=== PATIENT | female | born 1950 | race Caucasian/White ===

== ENCOUNTER → 2018-04-05 | Outpatient (CLI) | payer MEDICARE ==
[2018-04-05 13:50] LABS: Anisocytosis Slight; Basophils % (A) 1 %; Eosinophils # (A) 0.1 k/uL (0-0.7); Eosinophils % (A) 1 %; HCT 43.2 % (34.0-46.0); HGB 14.2 gm/dL (11.4-16.0); Hypochromasia Slight; Lymphocytes % (A) 12 %; MCH 32.6 pg (25.0-35.0); MCHC 32.9 g/dL (31.0-37.0); MCV 99.1 fL (80.0-100.0); Macrocytosis Slight; Mean Platelet Volume 6.9; Monocytes # (A) 0.7 k/uL (0-1.0); Monocytes % (A) 8 %; Neutrophils # (A) 6.6 k/uL (1.3-7.7); Neutrophils % (A) 77 %; Platelet Count 151 k/uL (150-450); RBC 4.36 m/uL (3.80-5.40); RDW 16.9 % (11.5-15.5); WBC 8.6 k/uL (3.8-10.6)
[2018-04-05 13:53] LABS: ALT 41 U/L (9-52); AST 69 U/L (14-36); Alkaline Phosphatase 110 U/L (38-126); Anion Gap 13 mmol/L; Blood Urea Nitrogen 12 mg/dL (7-17); Calcium 8.7 mg/dL (8.4-10.2); Carbon Dioxide 23 mmol/L (22-30); Chloride 100 mmol/L (98-107); Glucose 114 mg/dL (74-99); Potassium 4.5 mmol/L (3.5-5.1); Sodium 136 mmol/L (137-145); Total Bilirubin 1.9 mg/dL (0.2-1.3); Total Protein 7.6 g/dL (6.3-8.2)
== END | disposition home or self-care (01) ==
LOC: LABWHC1 12:16
PROVIDERS: ATTEND Physician Assistant
DX: R10.9 Unspecified abdominal pain (principal)
CPT/HCPCS: 36415; 80053; 85025

== ENCOUNTER → 2018-04-08 | Outpatient (CLI) | payer MEDICARE ==
--- NOTE | 2018-04-08 12:37 | US ---
EXAMINATION TYPE: US abdomen complete DATE OF EXAM: 04/08/2018 COMPARISON: CT, US CLINICAL HISTORY: R10.9 ABD PAIN; LLQ pain x 5 days with nausea and vomiting, diarrhea; gallbladder r emoved; hepatic cysts; diabetic; Ht5'7, WT 230lbs. EXAM MEASUREMENTS: Liver Length: 18.4 cm Gallbladder Wall: surgically removed CBD: 0.8 cm Spleen: 14.3 x 14.4 x 4.7 cm Right Kidney: 9.2 x 5.0 x 3.8 cm Left Kidney: 11.8 x 6.3 x 5.3 cm Pancreas: hyperechoic Liver: multiple right lobe hepatic cysts in clustered appearance = 4.9 x 3.6 x 3.7cm Gallbladder: surgically absent Evidence for sonographic Isaac's sign: no CBD: wnl post lap cholecystectomy Spleen: prominent size as is >13cm. Right Kidney: smaller size than left Left Kidney: No hydronephrosis or masses seen Upper IVC: wnl Abd Aorta: wnl Overlying bowel gas is noted midline abdomen. The liver is homogenous. Multiple hepatic cysts noted. Previous cholecystectomy changes. The intrahep atic portion of the IVC and proximal abdominal aorta are within normal limits. There is no evidence of cholelithiasis. The visualized portions of the pancreas are homogenous. Kidneys are symmetric an d free of hydronephrosis. No renal lesions are seen. IMPRESSION: 1. Multiple hepatic cysts are simple in appearance. 2. Splenomegaly.
--- NOTE | 2018-04-08 13:09 | US ---
EXAMINATION TYPE: US pelvic complete DATE OF EXAM: 04/08/2018 COMPARISON: CT 02/21/2016 CLINICAL HISTORY: R10.9 ABD PAIN. LLQ pain TECHNIQUE: . Transabdominal sonographic images of the pelvis were acquired. Patient attempted to dri nk more water to fill bladder more. Patient refused transvaginal imaging. Date of LMP: About age 47 EXAM MEASUREMENTS: Uterus: 7.4 x 2.5 x 4.4 cm Endometrial Stripe: 0.4 cm Right Ovary: Not visualized due to overlying bowel gas Left Ovary: 2.8 x 1.6 x 2.4 cm 1. Uterus: Anteverted wnl as visualized 2. Endometrium: wnl as visualized 3. Right Ovary: Not visualized due to overlying bowel gas 4. Left Ovary: wnl as visualized 5. Bilateral Adnexa: wnl 6. Posterior cul-de-sac: wnl IMPRESSION: 1. No distinct abnormality appreciated.
== END | disposition home or self-care (01) ==
LOC: RADUSWWP 10:49
PROVIDERS: ATTEND Family Medicine
DX: K76.89 Other specified diseases of liver (principal); R16.1 Splenomegaly, not elsewhere classified; R10.9 Unspecified abdominal pain
CPT/HCPCS: 76700; 76856

== ENCOUNTER 2018-10-22 10:30 | Inpatient (IN) | payer MEDICARE, OTHER ==
--- NOTE | 2018-10-22 11:23 | ED ---
General Adult HPI - General Chief complaint: GI Bleed Stated complaint: ABDOMINAL PAIN, RECTAL BLEEDING Time Seen by Provider: 10/22/18 10:50 Source: patient, RN notes reviewed, old records reviewed Mode of arrival: ambulatory Limitations: no limitations - History of Present Illness Initial comments: 68 yo female presenting for abdominal pain and rectal bleeding. Patient has been present for the past 2 days. Intermittent, crampy in nature. Patient is pain-free at the time my evaluation. She's had 2 episodes of bright red rectal bleeding with blood clots. She is not on anticoagulation. She has remote history of colon resection. She is uncertain when her last colonoscopy was. Denies fever but has had subjective chills. She's had nausea with no vomiting. Last normal bowel movement was 3 days prior. - Related Data Home Medications Medication Instructions Recorded Confirmed No Known Home Medications 10/22/18 10/22/18 Allergies Allergy/AdvReac Type Severity Reaction Status Date / Time No Known Allergies Allergy Verified 10/22/18 10:59 Review of Systems ROS Statement: Those systems with pertinent positive or pertinent negative responses have been documented in the HPI. ROS Other: All systems not noted in ROS Statement are negative. Past Medical History Past Medical History: GERD/Reflux, GI Bleed, Hearing Disorder / Deafness, Seizure Disorder, Syncope Additional Past Medical History / Comment(s): hx. diverticulitis, legally deaf left ear, recent admission for GI bleeding, peptic ulcer, hx. migraines, elevated liver enzymes-hasn't drank for approx. 1 month, had seizures as teen- nothing since then, feet swelling History of Any Multi-Drug Resistant Organisms: None Reported Past Surgical History: Appendectomy, Bowel Resection, Cholecystectomy, Orthopedic Surgery, Tonsillectomy Additional Past Surgical History / Comment(s): recent EGD, plate/screws in left elbow, bowel polyps Past Anesthesia/Blood Transfusion Reactions: No Reported Reaction Past Psychological History: No Psychological Hx Reported Smoking Status: Current every day smoker Past Alcohol Use History: Daily Past Drug Use History: None Reported - Past Family History Mother Family Medical History: Cancer, Liver Disease Additional Family Medical History / Comment(s): cancer of uterus Father Family Medical History: CVA/TIA, Hypertension, Myocardial Infarction ([place]) Additional Family Medical History / Comment(s): father from stroke Sister(s) Family Medical History: Cancer Additional Family Medical History / Comment(s): Breast Cancer General Exam Limitations: no limitations General appearance: alert, in no apparent distress Head exam: Present: atraumatic, normocephalic Eye exam: Present: normal appearance, PERRL ENT exam: Present: normal exam Neck exam: Present: normal inspection. Absent: tenderness, meningismus Respiratory exam: Present: normal lung sounds bilaterally. Absent: respiratory distress, wheezes Cardiovascular Exam: Present: regular rate, normal rhythm GI/Abdominal exam: Present: soft, tenderness (Minimal tenderness). Absent: distended, guarding, rebound Rectal exam: Present: normal inspection, normal rectal tone. Absent: black stool, bloody stool Extremities exam: Present: normal inspection, normal capillary refill. Absent: calf tenderness Neurological exam: Present: alert, oriented X3, CN II-XII intact. Absent: motor sensory deficit Psychiatric exam: Present: normal affect, normal mood Skin exam: Present: warm, dry, intact. Absent: cyanosis, diaphoretic Course Vital Signs 10/22/18 10/22/18 10/22/18 10:38 11:00 12:00 Temperature 97.5 F L Pulse Rate 88 78 74 Respiratory 20 16 16 Rate Blood Pressure 153/85 105/65 96/61 O2 Sat by Pulse 99 97 97 Oximetry 10/22/18 13:00 Temperature Pulse Rate Respiratory 16 Rate Blood Pressure 135/83 O2 Sat by Pulse Oximetry Medical Decision Making - Medical Decision Making 68 -year-old female presenting for evaluation of crampy abdominal pain and rectal bleeding. Patient has past history of diverticulosis with bowel resection. This was approximately 15 years ago. Patient's has no melena or significant bleeding on rectal exam. Workup reveals normal white blood cell count, stable hemoglobin 14.1, patient does have elevated total bili, AST ALT alkaline phosphatase are mildly elevated. She does report remote history of cholecystectomy and patient believes she may have past history of hepatitis C and has had elevated liver enzymes in the past. CT is performed which shows diverticulosis with concern for colitis and diverticulitis. There is also hepatocellular disease of the liver consistent with laboratory findings. Patient started on antibiotics as well as Protonix in the emergency partner. She will be admitted for further evaluation and treatment. Hemoglobin will be rechecked in the morning. Case is discussed with admitting physician Dr. Nolan, will accept admission. General surgery placed on consult. - Lab Data Result diagrams: 10/22/18 11:29 10/22/18 11:29 Lab Results 10/22/18 10/22/18 10/22/18 Range/Units 11:10 11:29 11:29 WBC 5.1 (3.8-10.6) k/uL RBC 4.42 (3.80-5.40) m/uL Hgb 14.1 (11.4-16.0) gm/dL Hct 42.0 (34.0-46.0) % MCV 95.1 (80.0-100.0) fL MCH 32.0 (25.0-35.0) pg MCHC 33.6 (31.0-37.0) g/dL RDW 15.7 H (11.5-15.5) % Plt Count 115 L (150-450) k/uL Neutrophils % 72 % Lymphocytes % 16 % Monocytes % 7 % Eosinophils % 3 % Basophils % 1 % Neutrophils # 3.7 (1.3-7.7) k/uL Lymphocytes # 0.8 L (1.0-4.8) k/uL Monocytes # 0.3 (0-1.0) k/uL Eosinophils # 0.1 (0-0.7) k/uL Basophils # 0.0 (0-0.2) k/uL PT (9.0-12.0) sec INR (<1.2) APTT (22.0-30.0) sec Sodium 139 (137-145) mmol/L Potassium 4.1 (3.5-5.1) mmol/L Chloride 106 (98-107) mmol/L Carbon Dioxide 22 (22-30) mmol/L Anion Gap 11 mmol/L BUN 9 (7-17) mg/dL Creatinine 0.79 (0.52-1.04) mg/dL Est GFR (CKD-EPI)AfAm >90 (>60 ml/min/1.73 sqM) Est GFR (CKD-EPI)NonAf 79 (>60 ml/min/1.73 sqM) Glucose 119 H (74-99) mg/dL Plasma Lactic Acid Randall (0.7-2.0) mmol/L Calcium 9.1 (8.4-10.2) mg/dL Magnesium 1.7 (1.6-2.3) mg/dL Total Bilirubin 1.7 H (0.2-1.3) mg/dL AST 98 H (14-36) U/L ALT 59 H (9-52) U/L Alkaline Phosphatase 146 H (38-126) U/L Total Protein 7.9 (6.3-8.2) g/dL Albumin 4.0 (3.5-5.0) g/dL Stool Occult Blood Positive H (Negative) 10/22/18 10/22/18 Range/Units 11:29 11:29 WBC (3.8-10.6) k/uL RBC (3.80-5.40) m/uL Hgb (11.4-16.0) gm/dL Hct (34.0-46.0) % MCV (80.0-100.0) fL MCH (25.0-35.0) pg MCHC (31.0-37.0) g/dL RDW (11.5-15.5) % Plt Count (150-450) k/uL Neutrophils % % Lymphocytes % % Monocytes % % Eosinophils % % Basophils % % Neutrophils # (1.3-7.7) k/uL Lymphocytes # (1.0-4.8) k/uL Monocytes # (0-1.0) k/uL Eosinophils # (0-0.7) k/uL Basophils # (0-0.2) k/uL PT 12.0 (9.0-12.0) sec INR 1.2 H (<1.2) APTT 34.4 H (22.0-30.0) sec Sodium (137-145) mmol/L Potassium (3.5-5.1) mmol/L Chloride (98-107) mmol/L Carbon Dioxide (22-30) mmol/L Anion Gap mmol/L BUN (7-17) mg/dL Creatinine (0.52-1.04) mg/dL Est GFR (CKD-EPI)AfAm (>60 ml/min/1.73 sqM) Est GFR (CKD-EPI)NonAf (>60 ml/min/1.73 sqM) Glucose (74-99) mg/dL Plasma Lactic Acid Randall 1.9 (0.7-2.0) mmol/L Calcium (8.4-10.2) mg/dL Magnesium (1.6-2.3) mg/dL Total Bilirubin (0.2-1.3) mg/dL AST (14-36) U/L ALT (9-52) U/L Alkaline Phosphatase (38-126) U/L Total Protein (6.3-8.2) g/dL Albumin (3.5-5.0) g/dL Stool Occult Blood (Negative) Disposition Clinical Impression: Diverticulosis, Diverticulitis, Lower GI bleed Disposition: ADMITTED IP TO THIS [facility] Condition: Stable Is patient prescribed a controlled substance at d/c from ED?: No Referrals: Len Forrest DO [Primary Care Provider] - 1-2 days Decision to Admit Reason: Admit from EC Decision Date: 10/22/18 Decision Time: 14:30
[2018-10-22 11:53] LABS: Basophils % (A) 1 %; Eosinophils # (A) 0.1 k/uL (0-0.7); Eosinophils % (A) 3 %; HGB 14.1 gm/dL (11.4-16.0); Lymphocytes # (A) 0.8 k/uL (1.0-4.8); Lymphocytes % (A) 16 %; MCHC 33.6 g/dL (31.0-37.0); MCV 95.1 fL (80.0-100.0); Mean Platelet Volume 7.3; Monocytes # (A) 0.3 k/uL (0-1.0); Monocytes % (A) 7 %; Neutrophils # (A) 3.7 k/uL (1.3-7.7); Neutrophils % (A) 72 %; Platelet Count 115 k/uL (150-450); RBC 4.42 m/uL (3.80-5.40); RDW 15.7 % (11.5-15.5); WBC 5.1 k/uL (3.8-10.6)
[2018-10-22 12:02] LABS: ALT 59 U/L (9-52); AST 98 U/L (14-36); Alkaline Phosphatase 146 U/L (38-126); Anion Gap 11 mmol/L; Blood Urea Nitrogen 9 mg/dL (7-17); Calcium 9.1 mg/dL (8.4-10.2); Carbon Dioxide 22 mmol/L (22-30); Chloride 106 mmol/L (98-107); Glucose 119 mg/dL (74-99); Magnesium 1.7 mg/dL (1.6-2.3); Potassium 4.1 mmol/L (3.5-5.1); Sodium 139 mmol/L (137-145); Total Bilirubin 1.7 mg/dL (0.2-1.3); Total Protein 7.9 g/dL (6.3-8.2)
[2018-10-22 12:08] LABS: INR 1.2 (<1.2); Partial Thromboplastin Time 34.4 sec (22.0-30.0)
[2018-10-22] MEDS ORDERED: PANTOPRAZOLE 40 MG/10 ML VIAL IVP STA (13:26)
--- NOTE | 2018-10-22 13:32 | CT ---
EXAMINATION TYPE: CT abdomen pelvis w con DATE OF EXAM: 10/22/2018 COMPARISON: 02/21/2016 HISTORY: Rectal bleeding and abd pain CT DLP: 2004.9 mGycm Automated exposure control for dose reduction was used. CONTRAST: CT scan of the abdomen pelvis is performed with IV Contrast, patient injected with 100 mL of Isovue 3 00. FINDINGS- LUNG BASES- No significant abnormality is appreciated. The heart is enlarged. LIVER/GB-tiny hypodensity in the dome of the liver too small to characterize. Liver somewhat nodular in contour and heterogeneous in attenuation. Correlate for hepatocellular disease. Stable appearing c alcified cyst within the liver. Biliary duct is prominent likely related to postcholecystectomy changes.. PANCREAS- No gross abnormality is seen. SPLEEN- No gross abnormality is seen. ADRENALS- No gross abnormality is seen. KIDNEYS/BLADDER- no hydronephrosis.. BOWEL-there is diffuse changes of diverticulosis and there is wall thickening and inflammatory change along the left colon extending to the level of what appears to be an anastomotic site near the sigmo id colon. Correlate with previous surgical history. Findings could been the basis of a diverticulitis although are somewhat diffuse in a colitis would also be in the differential diagnosis.. LYMPH NODES- No greater than 1cm abdominal or pelvic lymph nodes areappreciated. OSSEOUS STRUCTURES-arthropathy of the hips is noted and there is degenerative change of the spine.. OTHER- fat-containing inguinal hernia noted. Atherosclerotic change of the aorta which is of normal caliber. IMPRESSION- 1. Wall thickening along the left colon with surrounding pericolonic inflammatory changes. There is d iffuse diverticulosis. However given the diffuse nature of the inflammation colitis would also be in the differential diagnosis with diverticulitis. Correlate clinically. 2. Postsurgical change with apparent anastomotic site at the level of the sigmoid region correlate wi th surgical history for confirmation. 3. Heterogeneous enhancement of the liver with nodular contour correlate for hepatocellular disease o r hepatitis. 4. Stable large hepatic cyst
[2018-10-22] MEDS ORDERED: metroNIDAZOLE-NS PMX 500 MG in SALINE 1 100ML.BAG IVPB STA (13:51)
[2018-10-22] MEDS ORDERED: NALOXONE 0.4 MG/ML 1 ML VIAL IV PRN (14:26)
[2018-10-22] MEDS: MORPHINE SULFATE 4 MG/ML SYRINGE IV PRN ×2 (15:30→19:21)
[2018-10-22] MEDS: ONDANSETRON 4 MG/2 ML VIAL IVP PRN (15:31)
[2018-10-22] MEDS: SODIUM CHLORIDE 0.9% 1,000 ML IV SCH (16:57)
[2018-10-22] MEDS: NICOTINE 21MG/24HR PATCH TRANSDERM SCH (17:44)
[2018-10-22] MEDS: PANTOPRAZOLE 40 MG/10 ML VIAL IVP SCH (21:03)
[2018-10-22] MEDS: AMPICILLIN-SULBACTAM 1.5 GM in SODIUM CHLORIDE 0.9% 50 ML IVPB SCH (23:28)
[2018-10-23] MEDS: metroNIDAZOLE-NS PMX 500 MG in SALINE 1 100ML.BAG IVPB SCH ×3 (01:01→18:41)
--- NOTE | 2018-10-23 03:04 | HP ---
HISTORY AND PHYSICAL DATE OF ADMISSION: 10/22/2018 PRESENTING COMPLAINT: Abdominal pain, blood in stool. HISTORY OF PRESENTING COMPLAINT: This is a pleasant 68-year-old patient of Dr. Forrest. Chronic stable medical conditions include deaf in the left ear, hiatal hernia, obesity. The patient presents with 2 days of increasing abdominal pain and having blood in the stool. Pain is in the upper abdomen. Some nausea. No vomiting. No fever. No chills. The patient has had 2 prior episode back in 2016. Patient did have EGD and was found to have some gastric erosions and ulcers. Was negative for H pylori. The patient does not take any NSAIDs. CT scan in the ER did show evidence of diverticulitis. REVIEW OF SYSTEM: CONSTITUTIONAL: Tired. HEENT: None. RESPIRATORY. None. CARDIOVASCULAR: None. GASTROINTESTINAL: As above. GENITOURINARY: None. MUSCULOSKELETAL: None/ DERMATOLOGIC: None. HEMATOLOGIC: None. LYMPHATIC: None. HEMATOLOGIC: None. PSYCHIATRY: None. NEUROLOGICAL: None. PAST MEDICAL HISTORY: Gastritis with peptic ulcer disease, negative for H pylori; left ear deafness, seizure disorder as a child, diverticulosis, hiatal hernia. PAST SURGICAL HISTORY: Appendectomy, bowel resection, cholecystectomy, orthopedic surgery, tonsillectomy, bilateral cataract removed, left eye surgery for detached retina. SOCIAL HISTORY: The patient smoking a pack a day for last 42 years. FAMILY HISTORY: Liver disease, uterine cancer. HOME MEDICATIONS: None. ALLERGIES: None. PHYSICAL EXAMINATION: Temperature 97.5, pulse 85, respiration 16, blood pressure 110/64, pulse ox 95 percent. GENERAL APPEARANCE: Well built. BMI 36. Lying in bed, tired-appearing. EYES: Pupils equal. Conjunctivae normal. HEENT: External appearance of ears and nose normal. Oral cavity normal. NECK: JVD not raised. Mass not palpable. Respiratory effort normal. LUNGS: Slight decreased breath sounds. CARDIOVASCULAR: First and second sounds normal. No edema. ABDOMEN: Epigastric tenderness. No guarding or rigidity. Liver and spleen not palpable. LYMPHATICS: No lymph node palpable in neck or axilla. PSYCHIATRY: Alert and oriented x3. Mood and affect normal NEUROLOGICAL: Pupils equal. Cranial nerves grossly intact. Poser and sensation grossly intact. INVESTIGATION: CT scan of the abdomen results show diverticulosis and diverticulitis. White count 5.1, hemoglobin 15.1 potassium 4.1. ASSESSMENT: 1. Acute severe diverticulitis causing bleeding with a prior history of questionable surgery. 2. Severe colonic diverticulosis. 3. Obesity, BMI 36.6. 4. Mild thrombocytopenia, cause unknown. 5. Hiatal hernia. 6. Chronic nicotine dependence, patient is a cigarette smoker. PLAN: The patient has been made n.p.o., put on IV antibiotics. Consultation to GI and surgery is being done. Care was discussed with the patient. Questions were answered. MMODL / IJN: [id number] /
[2018-10-23] MEDS: ONDANSETRON 4 MG/2 ML VIAL IVP PRN ×2 (05:26→12:50)
[2018-10-23] MEDS ORDERED: MORPHINE SULFATE 2 MG/ML SYRINGE IVP PRN ×2 (06:57)
[2018-10-23] MEDS: AMPICILLIN-SULBACTAM 1.5 GM in SODIUM CHLORIDE 0.9% 50 ML IVPB SCH ×3 (07:20→23:22)
[2018-10-23] MEDS: NICOTINE 21MG/24HR PATCH TRANSDERM SCH (07:57)
[2018-10-23] MEDS: PANTOPRAZOLE 40 MG/10 ML VIAL IVP SCH ×2 (07:57→20:30)
[2018-10-23 08:07] LABS: Albumin 3.2 g/dL (3.5-5.0); Calcium 8.4 mg/dL (8.4-10.2); Total Bilirubin 1.6 mg/dL (0.2-1.3); Total Protein 6.6 g/dL (6.3-8.2)
[2018-10-23 08:12] LABS: Basophils % (A) 1 %; Eosinophils # (A) 0.1 k/uL (0-0.7); Eosinophils % (A) 4 %; HCT 40.4 % (34.0-46.0); HGB 12.3 gm/dL (11.4-16.0); Lymphocytes # (A) 0.5 k/uL (1.0-4.8); Lymphocytes % (A) 16 %; MCH 29.5 pg (25.0-35.0); MCHC 30.6 g/dL (31.0-37.0); MCV 96.5 fL (80.0-100.0); Mean Platelet Volume 6.8; Monocytes # (A) 0.3 k/uL (0-1.0); Monocytes % (A) 8 %; Neutrophils # (A) 2.3 k/uL (1.3-7.7); Neutrophils % (A) 70 %; RBC 4.18 m/uL (3.80-5.40); RDW 15.7 % (11.5-15.5); WBC 3.2 k/uL (3.8-10.6)
[2018-10-23 09:27] LABS: Platelet Count 83 k/uL (150-450)
[2018-10-23 09:29] LABS: Toxic Granulation Present
[2018-10-23] MEDS: traMADol 50 MG TAB PO PRN (10:19)
--- NOTE | 2018-10-23 10:50 | P.GSCN ---
History of Present Illness Consult date: 10/23/18 History of present illness: 68-year-old female presented to the emergency department complaining of abdominal pain. She states that she has been having pain on the epigastric and right side of her abdomen. She denies any nausea and denies any emesis. She states that she also did have one episode of blood in her stool. She states that the pain has been going on for a few days. She does have a history of a partial colectomy secondary to diverticulitis. She states that she has never had an ostomy. She does admit to having bouts of constipation in the past and states that she does not normally take any laxatives or stool softeners. She is unsure of when her last colonoscopy was. Per hospital records, it appears that the last colonoscopy on record was in 2014 with finding of diminutive polyps. CT of the abdomen and pelvis was performed in the emergency department which revealed a possible left-sided colitis due to thickening of the colon. The patient denies any fevers, chills, chest pain or shortness of breath. Review of Systems All systems: negative Past Medical History Past Medical History: GERD/Reflux, GI Bleed, Hearing Disorder / Deafness, Seizure Disorder, Syncope Additional Past Medical History / Comment(s): hx. diverticulitis,hiatal hernia, legally deaf left ear and mild loss of hearing rt ear, past admission for GI bleeding, peptic ulcer, hx.occ migraines,, had seizures as teen-nothing since then, History of Any Multi-Drug Resistant Organisms: None Reported Past Surgical History: Appendectomy, Bowel Resection, Cholecystectomy, Orthopedic Surgery, Tonsillectomy Additional Past Surgical History / Comment(s): recent EGD, plate/screws in left elbow,egd/colonoscopy bowel polyps, hina cataracts removed-lens implants. lt eye sx for detatched retina Past Anesthesia/Blood Transfusion Reactions: No Reported Reaction Smoking Status: Current every day smoker - Past Family History Mother Family Medical History: Cancer, Liver Disease Additional Family Medical History / Comment(s): cancer of uterus Father Family Medical History: CVA/TIA, Hypertension, Myocardial Infarction ([place]) Additional Family Medical History / Comment(s): father from stroke Sister(s) Family Medical History: Cancer Additional Family Medical History / Comment(s): Breast Cancer Medications and Allergies Home Medications Medication Instructions Recorded Confirmed Type No Known Home Medications 10/22/18 10/22/18 History Allergies Allergy/AdvReac Type Severity Reaction Status Date / Time No Known Allergies Allergy Verified 10/22/18 10:59 Surgical - Exam Osteopathic Statement: *. No significant issues noted on an osteopathic structural exam other than those noted in the History and Physical/Consult. Vital Signs Temp Pulse Resp BP Pulse Ox 97.5 F L 88 20 153/85 99 10/22/18 10:38 10/22/18 10:38 10/22/18 10:38 10/22/18 10:38 10/22/18 10:38 - General well nourished, no distress - Eyes PERRL, normal ocular movement - ENT no hearing loss - Neck trachea midline - Respiratory No difficulty with respiration - Abdomen Soft, tender to palpation in the epigastrium and right upper and lower quadrant , nondistended, no rebound, no guarding - Psychiatric oriented to time, oriented to person, oriented to place Results - Labs 10/23/18 06:50 10/23/18 06:50 Abnormal Lab Results - Last 24 Hours (Table) 10/22/18 10/22/18 10/22/18 Range/Units 11:10 11:29 11:29 WBC (3.8-10.6) k/uL MCHC (31.0-37.0) g/dL RDW 15.7 H (11.5-15.5) % Plt Count 115 L (150-450) k/uL Lymphocytes # 0.8 L (1.0-4.8) k/uL INR (<1.2) APTT (22.0-30.0) sec Sodium (137-145) mmol/L Glucose 119 H (74-99) mg/dL Total Bilirubin 1.7 H (0.2-1.3) mg/dL AST 98 H (14-36) U/L ALT 59 H (9-52) U/L Alkaline Phosphatase 146 H (38-126) U/L Albumin (3.5-5.0) g/dL Stool Occult Blood Positive H (Negative) 10/22/18 10/23/18 10/23/18 Range/Units 11:29 06:50 06:50 WBC 3.2 L (3.8-10.6) k/uL MCHC 30.6 L (31.0-37.0) g/dL RDW 15.7 H (11.5-15.5) % Plt Count 83 L (150-450) k/uL Lymphocytes # 0.5 L (1.0-4.8) k/uL INR 1.2 H (<1.2) APTT 34.4 H (22.0-30.0) sec Sodium 136 L (137-145) mmol/L Glucose 152 H (74-99) mg/dL Total Bilirubin 1.6 H (0.2-1.3) mg/dL AST 94 H (14-36) U/L ALT 55 H (9-52) U/L Alkaline Phosphatase (38-126) U/L Albumin 3.2 L (3.5-5.0) g/dL Stool Occult Blood (Negative) Diabetes panel 10/22/18 10/23/18 Range/Units 11:29 06:50 Sodium 139 136 L (137-145) mmol/L Potassium 4.1 4.0 (3.5-5.1) mmol/L Chloride 106 107 (98-107) mmol/L Carbon Dioxide 22 23 (22-30) mmol/L BUN 9 7 (7-17) mg/dL Creatinine 0.79 0.82 (0.52-1.04) mg/dL Glucose 119 H 152 H (74-99) mg/dL Calcium 9.1 8.4 (8.4-10.2) mg/dL AST 98 H 94 H (14-36) U/L ALT 59 H 55 H (9-52) U/L Alkaline Phosphatase 146 H 112 (38-126) U/L Total Protein 7.9 6.6 (6.3-8.2) g/dL Albumin 4.0 3.2 L (3.5-5.0) g/dL Calcium panel 10/22/18 10/23/18 Range/Units 11:29 06:50 Calcium 9.1 8.4 (8.4-10.2) mg/dL Albumin 4.0 3.2 L (3.5-5.0) g/dL Pituitary panel 10/22/18 10/23/18 Range/Units 11:29 06:50 Sodium 139 136 L (137-145) mmol/L Potassium 4.1 4.0 (3.5-5.1) mmol/L Chloride 106 107 (98-107) mmol/L Carbon Dioxide 22 23 (22-30) mmol/L BUN 9 7 (7-17) mg/dL Creatinine 0.79 0.82 (0.52-1.04) mg/dL Glucose 119 H 152 H (74-99) mg/dL Calcium 9.1 8.4 (8.4-10.2) mg/dL Adrenal panel 10/22/18 10/23/18 Range/Units 11:29 06:50 Sodium 139 136 L (137-145) mmol/L Potassium 4.1 4.0 (3.5-5.1) mmol/L Chloride 106 107 (98-107) mmol/L Carbon Dioxide 22 23 (22-30) mmol/L BUN 9 7 (7-17) mg/dL Creatinine 0.79 0.82 (0.52-1.04) mg/dL Glucose 119 H 152 H (74-99) mg/dL Calcium 9.1 8.4 (8.4-10.2) mg/dL Total Bilirubin 1.7 H 1.6 H (0.2-1.3) mg/dL AST 98 H 94 H (14-36) U/L ALT 59 H 55 H (9-52) U/L Alkaline Phosphatase 146 H 112 (38-126) U/L Total Protein 7.9 6.6 (6.3-8.2) g/dL Albumin 4.0 3.2 L (3.5-5.0) g/dL - Imaging CT scan - abdomen: report reviewed, image reviewed (Thickening of the left colon , previous anastomosis noted to be present) Assessment and Plan (1) Colitis Narrative/Plan: 68-year-old female with what appears to be a colitis. Continue antibiotics. The GI team has been consulted by the primary team, any endoscopy decision to be made by GI. Continue clear liquid diet at this time and continue to evaluate for resolution of pain. At this point, there is no plan for any acute surgical intervention. We will continue to follow and make clinical decisions based on the patient's progress. Thank you for this consultation, I look forward in providing in this patient's care. Current Visit: Yes Status: Acute Code(s): K52.9 - NONINFECTIVE GASTROENTERITIS AND COLITIS, UNSPECIFIED SNOMED Code(s): 31675493
[2018-10-23] MEDS ORDERED: DICYCLOMINE 10 MG CAP PO PRN (12:06)
[2018-10-23] MEDS ORDERED: ACETAMINOPHEN TAB 500 MG TAB PO PRN (16:49)
--- NOTE | 2018-10-23 16:54 | P.CONS ---
History of Present Illness - Reason for Consult Consult date: 10/23/18 Blood per rectum, diverticulitis Requesting physician: Flavio Nolan - Chief Complaint Abdominal pain - History of Present Illness The patient is a pleasant 68-year-old female with a history of hiatal hernia, peptic ulcer disease, diverticulosis, prior colonic resection secondary to colitis in 2005 per the patient who presented to the hospital with complaints of abdominal pain. The patient reports 2 days of abdominal pain. The pain was waxing and waning in intensity and crampy in nature. The patient reports that the pain was severe and worse in the upper abdomen above the umbilicus. In addition the patient reports noting bright red blood per rectum prior to presentation. No bowel movements today. On presentation the patient was found to have a hemoglobin significant for evaluation of 14.1, and INR of 1.2 and stool testing which was positive for occult blood. She had a CT of the abdomen which showed colonic wall thickening in the left colon with differential including colitis versus diverticulitis, as well as a stable hepatic cyst and diffuse hepatocellular disease. The patient also had liver enzymes with a total bilirubin of 1.7, alkaline phosphatase 98, AST 54 and ALP 146. The patient had endoscopic evaluation in 2014 with EGD significant for erosions and gastric ulcers, and colonoscopy significant for diverticulosis and a diminutive sigmoid adenoma. Review of Systems REVIEW OF SYSTEMS: CONSTITUTIONAL: Denies any fevers, chills, weight change or fatigue. CARDIOVASCULAR: Denies any chest pain, palpitations high or low blood pressures RESPIRATORY: Denies any shortness of breath, hemoptysis or cough. GENITOURINARY: No dysuria or hematuria. MUSCULOSKELETAL: No weakness reported. SKIN: Denies any new rashes or lesions, jaundice or pallor. PSYCHIATRIC: Denies any depression or anxiety. NEUROLOGY: Denies headache, denies any new focal deficits. EARS/NOSE/THROAT: No recent hearing change, congestion, nasal discharge or sore throat. EYES: No pain in eyes, discharge or change in vision. GASTROINTESTINAL: As per HPI. Past Medical History Past Medical History: GERD/Reflux, GI Bleed, Hearing Disorder / Deafness, Seizure Disorder, Syncope Additional Past Medical History / Comment(s): hx. diverticulitis,hiatal hernia, legally deaf left ear and mild loss of hearing rt ear, past admission for GI bleeding, peptic ulcer, hx.occ migraines,, had seizures as teen-nothing since then, History of Any Multi-Drug Resistant Organisms: None Reported Past Surgical History: Appendectomy, Bowel Resection, Cholecystectomy, Orthopedic Surgery, Tonsillectomy Additional Past Surgical History / Comment(s): recent EGD, plate/screws in left elbow,egd/colonoscopy bowel polyps, hina cataracts removed-lens implants. lt eye sx for detatched retina Past Anesthesia/Blood Transfusion Reactions: No Reported Reaction Smoking Status: Current every day smoker - Past Family History Mother Family Medical History: Cancer, Liver Disease Additional Family Medical History / Comment(s): cancer of uterus Father Family Medical History: CVA/TIA, Hypertension, Myocardial Infarction ([place]) Additional Family Medical History / Comment(s): father from stroke Sister(s) Family Medical History: Cancer Additional Family Medical History / Comment(s): Breast Cancer Medications and Allergies Home Medications Medication Instructions Recorded Confirmed Type No Known Home Medications 10/22/18 10/22/18 History Allergies Allergy/AdvReac Type Severity Reaction Status Date / Time No Known Allergies Allergy Verified 10/22/18 10:59 Physical Exam Vitals: Vital Signs Temp Pulse Resp BP Pulse Ox 10/23/18 16:00 68 17 10/23/18 11:41 96.8 F L 68 17 120/59 95 10/23/18 08:20 81 16 10/23/18 07:00 97.6 F 10/23/18 04:53 97.5 F L 81 16 129/59 98 10/22/18 21:00 97.5 F L 85 16 110/64 95 Intake and Output 10/23/18 10/23/18 10/23/18 06:59 14:59 22:59 Intake Total 475 Output Total 700 700 Balance 475 -700 -700 Intake: Intake, IV Titration 475 Amount Ampicillin-Sulbactam 1.5 50 gm In Sodium Chloride 0.9 % 50 ml @ 100 mls/hr IVPB Q8HR ANMOL Rx#:[id number] Sodium Chloride 0.9% 1, 325 000 ml @ 50 mls/hr IV . Q20H ANMOL Rx#:[id number] metroNIDAZOLE-NS PMX 500 100 mg In Saline 1 100ml.bag @ 100 mls/hr IVPB Q8HR ANMOL Rx#:[id number] Output: Urine 700 700 Other: Voiding Method Toilet Toilet Toilet # Voids 2 On physical examination, patient appears comfortable in no apparent distress. HEAD: Normocephalic, atraumatic. EYES: No scleral icterus. No conjunctival injection. MOUTH: No lesions, tongue midline. NECK: Trachea midline, no gross abnormalities. CHEST: Clear to auscultation with no wheezing or rhonchi appreciated. HEART: Regular rate S1-S2 appreciated. ABDOMEN: Soft, obese, diffusely tender. Bowel sounds are positive. No organomegaly. No guarding or rigidity. EXTREMITIES: No pedal edema. SKIN: No rashes, no jaundice. NEUROLOGIC: Alert and oriented x3. No focal deficits. Results CBC & Chem 7: 10/23/18 06:50 10/23/18 06:50 Labs: Abnormal Lab Results - Last 24 Hours (Table) 10/23/18 10/23/18 Range/Units 06:50 06:50 WBC 3.2 L (3.8-10.6) k/uL MCHC 30.6 L (31.0-37.0) g/dL RDW 15.7 H (11.5-15.5) % Plt Count 83 L (150-450) k/uL Lymphocytes # 0.5 L (1.0-4.8) k/uL Sodium 136 L (137-145) mmol/L Glucose 152 H (74-99) mg/dL Total Bilirubin 1.6 H (0.2-1.3) mg/dL AST 94 H (14-36) U/L ALT 55 H (9-52) U/L Albumin 3.2 L (3.5-5.0) g/dL CT scan - abdomen: report reviewed (CT of the abdomen which showed colonic wall thickening in the left colon with differential including colitis versus diverticulitis, as well as a stable hepatic cyst and diffuse hepatocellular disease. ) Assessment and Plan (1) Colitis Narrative/Plan: Patient presenting with complaints of abdominal pain and bright red blood per rectum with findings of left-sided colitis versus diverticulitis. Differential includes ischemic colitis, diverticulitis, infectious colitis or other etiology. Current Visit: Yes Status: Acute Code(s): K52.9 - NONINFECTIVE GASTROENTERITIS AND COLITIS, UNSPECIFIED SNOMED Code(s): 09610248 (2) Lower GI bleed Narrative/Plan: Reports of bright red blood per rectum on presentation with patient denying any further episodes today. Current Visit: Yes Status: Acute Code(s): K92.2 - GASTROINTESTINAL HEMORRHAGE, UNSPECIFIED SNOMED Code(s): 63582329 Plan: Supportive care Okay for liquids Continue antibiotic therapy Bentyl added for abdominal pain Continue to monitor hemoglobin and transfuse as needed Reports from prior EGD and colonoscopy reviewed, no plans for endoscopic intervention at this time, given findings on computed tomography scan patient would benefit from outpatient colonoscopy in 4-6 weeks Appreciate surgical recommendations Thank you for allowing us to participate in the care of the patient we will continue to follow
[2018-10-23] MEDS: SODIUM CHLORIDE 0.9% 1,000 ML IV SCH ×2 (17:01→17:03)
[2018-10-24] MEDS: metroNIDAZOLE-NS PMX 500 MG in SALINE 1 100ML.BAG IVPB SCH ×3 (00:07→15:11)
[2018-10-24] MEDS: ZOLPIDEM 5 MG TAB PO PRN ×2 (00:07→21:07)
[2018-10-24] MEDS: SODIUM CHLORIDE 0.9% 1,000 ML IV SCH ×3 (06:08→21:07)
[2018-10-24 07:34] LABS: Basophils % (A) 0 %; Eosinophils # (A) 0.1 k/uL (0-0.7); Eosinophils % (A) 4 %; HCT 37.5 % (34.0-46.0); HGB 12.7 gm/dL (11.4-16.0); Lymphocytes # (A) 0.5 k/uL (1.0-4.8); Lymphocytes % (A) 21 %; MCHC 33.8 g/dL (31.0-37.0); MCV 94.9 fL (80.0-100.0); Mean Platelet Volume 7.3; Monocytes # (A) 0.2 k/uL (0-1.0); Monocytes % (A) 8 %; Neutrophils # (A) 1.5 k/uL (1.3-7.7); Neutrophils % (A) 65 %; RBC 3.95 m/uL (3.80-5.40); RDW 15.3 % (11.5-15.5); WBC 2.2 k/uL (3.8-10.6)
--- NOTE | 2018-10-24 07:34 | PN ---
PROGRESS NOTE DATE OF SERVICE: 10/23/2018 PRESENTING COMPLAINT: Abdominal pain. INTERVAL HISTORY: This patient presented with acute severe diverticulitis with bleeding. Doing better. Some abdominal pain is present. Lying in bed. No endoscopy planned at this time. REVIEW OF SYSTEMS: Done for constitutional, cardiovascular, GI, pulmonary; relevant findings as above. CURRENT MEDICATIONS: Reviewed that include IV Unasyn and Flagyl. PHYSICAL EXAMINATION: Temperature 96.8 pulse 68, respiration 17, blood pressure 120/59, pulse ox 95% on room air. GENERAL APPEARANCE: Sitting up, comfortable. GENERAL APPEARANCE: More comfortable. EYES: Pupils equal. Conjunctivae normal. NECK: JVD not raised. Mass not palpable. Respiratory effort normal. LUNGS: Decreased breath sounds. CARDIOVASCULAR: First and second sounds normal. No edema. ABDOMEN: Minimal epigastric tenderness. No guarding or rigidity. Normal bowel sounds. PSYCHIATRY: Alert and oriented x3. Mood and affect normal. INVESTIGATIONS: White count 3.2, hemoglobin 12.3, platelets 83, potassium 4.0. ASSESSMENT: 1. Acute severe diverticulitis causing bleeding with prior history of possible surgery with clinical response. 2. Severe colonic diverticulosis. 3. Obesity, BMI 36.6. 4. Mild thrombocytopenia, cause unknown. 5. Hiatal hernia. 6. Chronic nicotine dependence, patient is a cigarette smoker. PLAN: Bentyl was added. The patient spasms better with the same. Continue the IV antibiotics. No surgical or endoscopy at the present time. Patient is on a clear liquid diet, will advance to full liquid diet in the morning. MMODL / IJN: [id number] /
[2018-10-24 07:42] LABS: Anion Gap 4 mmol/L; Blood Urea Nitrogen 6 mg/dL (7-17); Calcium 8.2 mg/dL (8.4-10.2); Carbon Dioxide 24 mmol/L (22-30); Chloride 108 mmol/L (98-107); Glucose 122 mg/dL (74-99); Sodium 136 mmol/L (137-145)
[2018-10-24 07:45] LABS: Platelet Count 73 k/uL (150-450)
[2018-10-24] MEDS: traMADol 50 MG TAB PO PRN (08:15)
[2018-10-24] MEDS: NICOTINE 21MG/24HR PATCH TRANSDERM SCH ×2 (08:15→08:21)
[2018-10-24] MEDS: AMPICILLIN-SULBACTAM 1.5 GM in SODIUM CHLORIDE 0.9% 50 ML IVPB SCH ×3 (08:22→23:09)
[2018-10-24] MEDS: PANTOPRAZOLE 40 MG/10 ML VIAL IVP SCH ×2 (08:23→21:07)
--- NOTE | 2018-10-24 09:51 | P.PN ---
Subjective Progress Note Date: 10/24/18 Pt seen and examined at bedside. States abdominal pain has improved. No bowel movements. Tolerating FLD without nausea or vomiting. Objective - Vital Signs Vital signs: Vital Signs Temp 97.4 F L 10/24/18 05:31 Pulse 77 10/24/18 08:25 Resp 16 10/24/18 08:25 BP 141/91 10/24/18 05:31 Pulse Ox 98 10/24/18 05:31 Intake & Output 10/23/18 10/24/18 10/24/18 18:59 06:59 18:59 Intake Total 2080 Output Total 1400 Balance -1400 2079 Intake: Intake, IV Titration 900 Amount Sodium Chloride 0.9% 1, 900 000 ml @ 75 mls/hr IV . [id number] ANMOL Rx#:[id number] Oral 1180 Output: Urine 1400 Other: Voiding Method Toilet Toilet Toilet # Voids 2 2 - Constitutional General appearance: Present: cooperative, no acute distress - EENT Eyes: Present: PERRLA - Respiratory Details: no difficulty with respiration - Gastrointestinal Gastrointestinal Comment(s): soft, nontender, nondistended, no rebound, no guarding - Musculoskeletal Musculoskeletal: Present: generalized weakness - Psychiatric Psychiatric: Present: A&O x's 3 - Labs CBC & Chem 7: 10/24/18 07:12 10/24/18 07:12 Labs: Abnormal Lab Results - Last 24 Hours (Table) 10/24/18 10/24/18 Range/Units 07:12 07:12 WBC 2.2 L (3.8-10.6) k/uL Plt Count 73 L (150-450) k/uL Lymphocytes # 0.5 L (1.0-4.8) k/uL Sodium 136 L (137-145) mmol/L Chloride 108 H (98-107) mmol/L BUN 6 L (7-17) mg/dL Glucose 122 H (74-99) mg/dL Calcium 8.2 L (8.4-10.2) mg/dL Assessment and Plan (1) Colitis Narrative/Plan: 68-year-old female with colitis, improving - Continue to advance diet - Continue GI recommendations - No plan for acute surgical intervention - Please call if any change in clinical progress Current Visit: Yes Status: Acute Code(s): K52.9 - NONINFECTIVE GASTROENTERITIS AND COLITIS, UNSPECIFIED SNOMED Code(s): 49113372
--- NOTE | 2018-10-24 19:28 | P.PN ---
Subjective Progress Note Date: 10/24/18 Principal diagnosis: Abdominal pain, diverticulitis Patient is reporting that abdominal pain is improved. She is tolerating diet. She reports a nonbloody bowel movement today. Objective - Vital Signs Vital signs: Vital Signs Temp 97.4 F L 10/24/18 12:22 Pulse 66 10/24/18 14:07 Resp 15 10/24/18 14:07 BP 116/67 10/24/18 12:22 Pulse Ox 95 10/24/18 12:22 Intake & Output 10/24/18 10/24/18 10/25/18 06:59 18:59 06:59 Intake Total 2080 240 Output Total 2 Balance 2079 238 Intake: Intake, IV Titration 900 Amount Sodium Chloride 0.9% 1, 900 000 ml @ 75 mls/hr IV . [id number] ANMOL Rx#:[id number] Oral 1180 240 Output: Stool 2 Other: Voiding Method Toilet Toilet # Voids 2 2 - Exam On physical examination, patient appears comfortable in no apparent distress. HEAD: Normocephalic, atraumatic. EYES: No scleral icterus. No conjunctival injection. MOUTH: No lesions, tongue midline. NECK: Trachea midline, no gross abnormalities. CHEST: Clear to auscultation with no wheezing or rhonchi appreciated. HEART: Regular rate and rhythm. ABDOMEN: Soft, obese. Bowel sounds are positive. No organomegaly. No guarding or rigidity. EXTREMITIES: No pedal edema. SKIN: No rashes, no jaundice. NEUROLOGIC: Alert and oriented x3. No focal deficits. - Labs CBC & Chem 7: 10/24/18 07:12 10/24/18 07:12 Labs: Abnormal Lab Results - Last 24 Hours (Table) 10/24/18 10/24/18 Range/Units 07:12 07:12 WBC 2.2 L (3.8-10.6) k/uL Plt Count 73 L (150-450) k/uL Lymphocytes # 0.5 L (1.0-4.8) k/uL Sodium 136 L (137-145) mmol/L Chloride 108 H (98-107) mmol/L BUN 6 L (7-17) mg/dL Glucose 122 H (74-99) mg/dL Calcium 8.2 L (8.4-10.2) mg/dL Assessment and Plan (1) Colitis Narrative/Plan: Patient presenting with complaints of abdominal pain and bright red blood per rectum with findings of left-sided colitis versus diverticulitis. Differential includes ischemic colitis, diverticulitis, infectious colitis or other etiology. Current Visit: Yes Status: Acute Code(s): K52.9 - NONINFECTIVE GASTROENTERITIS AND COLITIS, UNSPECIFIED SNOMED Code(s): 84553490 (2) Lower GI bleed Narrative/Plan: Reports of bright red blood per rectum on presentation with patient denying any further episodes today. Current Visit: Yes Status: Acute Code(s): K92.2 - GASTROINTESTINAL HEMORRHAGE, UNSPECIFIED SNOMED Code(s): 22299826 (3) Elevated liver enzymes Narrative/Plan: Patient with stable elevation in her liver enzymes in the setting of history of alcohol abuse. This likely relates to hepatocellular disease seen on computed tomography scan, however will fractionate bilirubin and check viral hepatitis panel. Current Visit: Yes Status: Acute Code(s): R74.8 - ABNORMAL LEVELS OF OTHER SERUM ENZYMES SNOMED Code(s): 145380917 Plan: Supportive care Diet as tolerated Continue antibiotic therapy Bentyl added for abdominal pain Continue to monitor hemoglobin and transfuse as needed Repeat hepatic panel and viral hepatitis panel or ordered Reports from prior EGD and colonoscopy reviewed, no plans for endoscopic intervention at this time, given findings on computed tomography scan patient would benefit from outpatient colonoscopy in 4-6 weeks Patient has follow-up with gastroenterology tomorrow, she was told to reschedule for after discharge Appreciate surgical recommendations Thank you for allowing us to participate in the care of the patient we will continue to follow
[2018-10-24 21:17] VITALS: RESP 16
[2018-10-25] MEDS: metroNIDAZOLE-NS PMX 500 MG in SALINE 1 100ML.BAG IVPB SCH ×3 (00:14→16:04)
--- NOTE | 2018-10-25 01:54 | PN ---
PROGRESS NOTE DATE OF SERVICE: October 24, 2018. PRESENTING COMPLAINT: Tired. INTERVAL HISTORY: This patient presented with acute severe diverticulitis with bleeding. Abdominal pain is greatly improved. Had a brown stool earlier. Did tolerate full liquid diet. No endoscopy per GI. Has been out of bed. REVIEW OF SYSTEMS: Done for constitutional, cardiovascular, GI, pulmonary; relevant findings as above. CURRENT MEDICATIONS: Reviewed that include IV Unasyn and Flagyl. PHYSICAL EXAMINATION: VITAL SIGNS: Temperature 97.4. Pulse 66, respiration 15, blood pressure 116/67, pulse ox 95% on room air. GENERAL APPEARANCE: Lying in bed, comfortable. EYES: Pupils equal. Conjunctivae normal. NECK: JVD not raised. Mass not palpable. RESPIRATORY: Effort normal. Lungs decreased breath sounds. CARDIOVASCULAR: 1st and 2nd sounds normal. No edema. ABDOMEN: Soft, nontender. Liver and spleen not palpable. PSYCHIATRY: Alert and oriented x3. Mood and affect normal. INVESTIGATIONS: White count 2.2, hemoglobin 12.7, platelets 73. Potassium 4.0, BUN 6, creatinine 0.76. ASSESSMENT: 1. Acute severe diverticulitis causing bleeding with prior history of possible surgery with good clinical response. 2. Severe colonic diverticulosis. 3. Obesity BMI 36.6. 4. Bicytopenia, could be from underlying infection. 5. Hiatal hernia. 6. Chronic nicotine dependence, patient is a cigarette smoker. PLAN: Care was discussed with the patient. Diet was advanced. If she remains stable, can probably go home tomorrow. Overall looking much better. MMODL / IJN: [id number] /
[2018-10-25] MEDS: traMADol 50 MG TAB PO PRN (03:40)
[2018-10-25] MEDS: SODIUM CHLORIDE 0.9% 1,000 ML IV SCH (04:52)
[2018-10-25 07:55] LABS: Albumin 2.9 g/dL (3.5-5.0); Bilirubin, Delta 0.1 mg/dL (0.0-0.2); Bilirubin,Unconjugated 0.7 mg/dL (0.0-1.1); Calcium 8.3 mg/dL (8.4-10.2); Potassium 4.1 mmol/L (3.5-5.1); Total Bilirubin 0.8 mg/dL (0.2-1.3)
[2018-10-25] MEDS: AMPICILLIN-SULBACTAM 1.5 GM in SODIUM CHLORIDE 0.9% 50 ML IVPB SCH ×2 (09:26→16:04)
[2018-10-25] MEDS: PANTOPRAZOLE 40 MG/10 ML VIAL IVP SCH (09:29)
[2018-10-25 11:15] VITALS: BP 126/76; PULSE 69; TEMP 97.8
[2018-10-25 13:14] LABS: Hepatitis A Antibody IgM Equivocal (Non-Reactive); Hepatitis B Core IgM Non-Reactive (Non-Reactive)
--- NOTE | 2018-10-26 06:09 | DS ---
DISCHARGE SUMMARY DATE OF ADMISSION: 10/22/2018 DATE OF DISCHARGE: 10/25/2018 FINAL DIAGNOSES: 1. Acute colitis, likely ischemic. 2. Severe colonic diverticulosis. 3. Obesity, body mass index 36.6. 4. Bicytopenia, could be from infection. 5. Hiatal hernia. 6. Chronic nicotine dependence, patient is a cigarette smoker. HOSPITAL COURSE: This patient presented with abdominal pain, severe cramping and blood in the stool. It was felt whether there is acute diverticulitis versus colitis more likely the latter. The patient was treated with antibiotics, IV fluids including IV Unasyn and Flagyl to which she responded well. By the time of discharge, she was having brown stools. No more abdominal pain. Tolerating a diet. PHYSICAL EXAMINATION: On examination, temperature 97.8, pulse 69, respiration 16, blood pressure 126/76. ABDOMEN: Soft, nontender. CONSULTATIONS: Dr. Tirado from General Surgery; Dr. Kolb from GI. LABS: White count 2.2, hemoglobin 12.7, platelets 73. Potassium 4.1, BUN 4, creatinine 0.85. DISCHARGE MEDICATIONS: 1. Tylenol 500 mg q.6 p.r.n. 2. Augmentin 875 one tablet q.12, fourteen tablets. 3. Bentyl 10 mg p.o. q.i.d. p.r.n. for abdominal cramps. 4. Nicotine 21 mg patch. Follow up with Dr. Howell on 11/04/2018. Follow up with Dr. Forrest on 10/29/2018. DIET: Soft, bland. MMODL / IJN: [id number] /
== END 2018-10-25 16:00 | disposition home or self-care (01) | DRG 393 ==
LOC: EC 10:30 → 3NMEDONC 14:26 → OBSVTOIN 10-24 09:24
PROVIDERS: ADMIT Hospitalist; ATTEND Hospitalist
DX: K55.039 Acute (reversible) ischemia of large intestine, extent unspecified (principal); K57.33 Diverticulitis of large intestine without perforation or abscess with bleeding; D69.6 Thrombocytopenia, unspecified; B19.20 Unspecified viral hepatitis C without hepatic coma; K21.9 Gastro-esophageal reflux disease without esophagitis; G43.909 Migraine, unspecified, not intractable, without status migrainosus; K44.9 Diaphragmatic hernia without obstruction or gangrene; F17.210 Nicotine dependence, cigarettes, uncomplicated; R74.8 Abnormal levels of other serum enzymes; H91.92 Unspecified hearing loss, left ear; E66.9 Obesity, unspecified; Z68.36 Body mass index [BMI] 36.0-36.9, adult; F10.11 Alcohol abuse, in remission; Z87.11 Personal history of peptic ulcer disease; Z90.49 Acquired absence of other specified parts of digestive tract; Z86.010 Personal history of colon polyps; Z86.69 Personal history of other diseases of the nervous system and sense organs; Z98.42 Cataract extraction status, left eye; Z98.41 Cataract extraction status, right eye; Z96.1 Presence of intraocular lens; Z80.49 Family history of malignant neoplasm of other genital organs; Z82.49 Family history of ischemic heart disease and other diseases of the circulatory system; Z80.3 Family history of malignant neoplasm of breast; Z82.3 Family history of stroke; Z83.79 Family history of other diseases of the digestive system
CPT/HCPCS: 36415; 74177; 80048; 80053; 80074; 80076; 82272; 83605; 83735; 85025; 85610; 85730; 96365; 96367; 96375; 99285

== ENCOUNTER 2019-03-28 09:11 | Day surgery (SDC) | payer MEDICARE ==
[2019-03-25 10:40] VITALS: BMI 32.8
[~2019-03-28 09:11] MED LIST: LACTATED RINGERS 1,000 ML IV SCH
[2019-03-28 09:42] VITALS: RESP 16; TEMP 97.1
[2019-03-28] MEDS ORDERED: LIDOCAINE 1% 20 ML VIAL (10MG/ML) FOR IV START INTRADERMA ONE (09:50)
[2019-03-28] MEDS ORDERED: LIDOCAINE 1% INJ 10MG/ML (20 ML MDV) ONE (10:16)
[2019-03-28] MEDS ORDERED: PROPOFOL 10 MG/ML 20 ML VIAL IV ONE (10:16)
[2019-03-28 10:28] LABS: Bilirubin, Delta 0.2 mg/dL (0.0-0.2); Bilirubin,Unconjugated 1.8 mg/dL (0.0-1.1); Total Protein 7.9 g/dL (6.3-8.2)
--- NOTE | 2019-03-28 10:52 | P.PCN ---
Date of Procedure: 03/28/19 Procedure(s) Performed: Procedure: Total colonoscopy. Preoperative diagnosis: History of diverticulitis. Postoperative diagnosis: Diverticulosis with no evidence of acute diverticulitis, strictures, polyps or cancer. Preparation: HalfLytely prep. Sedation: Was provided by anesthesia. Brief clinical history: The patient is a 68-year-old female who was scheduled for this evaluation because of recent episode of diverticulitis. The patient had colonoscopies for polyp removal in the past. This evaluation is to assess for complicated diverticular disease or neoplasia. Procedure: With the patient on her left lateral decubitus position and after informed consent and adequate sedation, the perianal area was inspected and it did not show any fissures or fistulas. There were no masses felt on digital rectal examination. The Olympus CFH 190L video colonoscope was then inserted in the rectum in the usual fashion and advanced to the cecum. The mucosa appeared healthy. There were multiple diverticular orifices seen scattered in the sigmoid and on the right side with no evidence of acute diverticulitis or strictures. No polyps or tumors were seen. I retroflexed the endoscope in the rectum before the endoscope was withdrawn. The patient tolerated the procedure well. Plan: The patient was reassured. Discussed dietary measures. She will follow- up with you as planned and I recommended repeat exam in 5 years.
[2019-03-28 11:02] VITALS: BP 117/67; PULSE 68
== END 2019-03-28 11:15 | disposition home or self-care (01) ==
LOC: ORWHC2ENDO 09:11
DX: K57.30 Diverticulosis of large intestine without perforation or abscess without bleeding (principal); Z88.5 Allergy status to narcotic agent; E11.9 Type 2 diabetes mellitus without complications; G40.909 Epilepsy, unspecified, not intractable, without status epilepticus; K21.9 Gastro-esophageal reflux disease without esophagitis; Z79.82 Long term (current) use of aspirin; Z79.899 Other long term (current) drug therapy
CPT/HCPCS: 80076; 45378; J2001; J2704

== ENCOUNTER 2019-07-08 22:46 | Inpatient (IN) | payer MEDICARE ==
--- NOTE | 2019-07-08 23:03 | ED ---
GI Bleed HPI - General Chief complaint: GI Bleed Stated complaint: Vomiting,Weakness Time Seen by Provider: 07/08/19 22:53 Source: patient Mode of arrival: ambulatory Limitations: no limitations - History of Present Illness Initial comments: This patient is a 68-year-old woman who presents to be evaluated for vomiting with some hematemesis as well. The patient states she had been in her usual state of health until this afternoon when she began feeling nauseated. She states that she thought that this would pass and was going to bed. An approximately 45 minutes ago she began having a number of episodes of vomiting. She states that she believes she threw up 4-5 times, and that with the last 2 episodes there was some bright red blood associated. Patient states that she had a similar episode about 4 years ago, was seen here and had an upper en doscopy which she states she'll do this was related to something with her esophagus. The patient denies having any associated pain. She states that after the episode of vomiting she was feeling lightheaded like she would pass out. She did not have any other symptoms, including no chest pain, dyspnea, syncope, palpitations. Patient states that her last bowel movement was earlier today and did not have any blood or dark tarry material. complaint: blood streaked emesis -: minutes(s) Radiation: none Quality: painless Improves with: none Worsens with: none Context: history of GI bleed Associated Symptoms: nausea, vomiting Treatments Prior to Arrival: none - Related Data Home Medications Medication Instructions Recorded Confirmed SUMAtriptan SUCCINATE [Sumatriptan 100 mg PO DAILY PRN 02/18/19 07/08/19 Succinate] Melatonin 5 mg PO HS PRN 07/08/19 07/08/19 Allergies Allergy/AdvReac Type Severity Reaction Status Date / Time morphine AdvReac Nausea & Verified 07/08/19 22:57 Vomiting Review of Systems ROS Statement: Those systems with pertinent positive or pertinent negative responses have been documented in the HPI. ROS Other: All systems not noted in ROS Statement are negative. Constitutional: Denies: fever, chills, weakness Respiratory: Denies: cough, dyspnea Cardiovascular: Denies: chest pain, palpitations, orthopnea, edema, syncope Gastrointestinal: Reports: as per HPI, nausea, vomiting, hematemesis. Denies: abdominal pain, diarrhea, constipation, melena, hematochezia Genitourinary: Denies: dysuria, hematuria Musculoskeletal: Denies: back pain Skin: Denies: rash Neurological: Denies: headache, weakness Psychiatric: Reports: anxiety Hematological/Lymphatic: Denies: easy bleeding Past Medical History Past Medical History: Diabetes Mellitus, GERD/Reflux, GI Bleed, Hearing Disorder / Deafness, Seizure Disorder, Syncope Additional Past Medical History / Comment(s): hx. diverticulitis,hiatal hernia, legally deaf left ear and mild loss of hearing rt ear, poor vision left eye., past admission for GI bleeding, peptic ulcer, migraines, last seizure in her 20"s., Hx of Hepatitis C and possible Hepatitis A (no tx), States Bloodpressure and Heart rate elevated in hospital ., Back Pain., states diabetes resolved., Urinary urgency. History of Any Multi-Drug Resistant Organisms: None Reported Past Surgical History: Appendectomy, Bowel Resection, Cholecystectomy, Orthopedic Surgery, Tonsillectomy Additional Past Surgical History / Comment(s): recent EGD, plate/screws in left elbow,egd/colonoscopy bowel polyps, hina cataracts with lens implants. lt eye sx for detatched retina Past Anesthesia/Blood Transfusion Reactions: No Reported Reaction Past Psychological History: Anxiety Smoking Status: Current every day smoker Past Alcohol Use History: Occasional Past Drug Use History: None Reported - Past Family History Mother Family Medical History: Cancer, Liver Disease Additional Family Medical History / Comment(s): cancer of uterus Father Family Medical History: CVA/TIA, Hypertension, Myocardial Infarction ([place]) Additional Family Medical History / Comment(s): father from stroke Sister(s) Family Medical History: Cancer Additional Family Medical History / Comment(s): Breast Cancer General Exam Limitations: no limitations General appearance: alert, in no apparent distress Head exam: Present: atraumatic, normocephalic Eye exam: Present: normal appearance. Absent: scleral icterus, conjunctival injection ENT exam: Present: normal oropharynx Respiratory exam: Present: normal lung sounds bilaterally. Absent: respiratory distress, wheezes, rales, rhonchi, stridor Cardiovascular Exam: Present: normal rhythm, tachycardia (Heart rate 104 at my exam), normal heart sounds. Absent: systolic murmur, diastolic murmur, rubs, gallop GI/Abdominal exam: Present: soft, normal bowel sounds. Absent: distended, tenderness, guarding, rebound, rigid, mass, pulsatile mass, hernia Extremities exam: Present: normal inspection, normal capillary refill. Absent: pedal edema, calf tenderness Back exam: Present: normal inspection. Absent: CVA tenderness (R), CVA tenderness (L) Neurological exam: Present: alert Skin exam: Present: warm, dry, intact, normal color. Absent: rash Course Vital Signs 07/08/19 07/08/19 07/08/19 22:47 23:00 23:30 Temperature 97.8 F Pulse Rate 109 H 100 98 Respiratory 24 19 18 Rate Blood Pressure 72/52 98/64 92/68 O2 Sat by Pulse 99 98 98 Oximetry 07/09/19 07/09/19 07/09/19 00:40 01:30 02:00 Temperature Pulse Rate 98 105 H 92 Respiratory 18 19 18 Rate Blood Pressure 109/78 95/32 67/34 O2 Sat by Pulse 98 97 98 Oximetry 07/09/19 07/09/19 07/09/19 02:40 03:10 03:20 Temperature Pulse Rate 115 H 120 H 118 H Respiratory 18 17 17 Rate Blood Pressure 60/45 62/34 105/63 O2 Sat by Pulse 97 98 97 Oximetry 07/09/19 07/09/19 03:30 04:00 Temperature Pulse Rate 121 H 138 H Respiratory 19 18 Rate Blood Pressure 91/59 113/57 O2 Sat by Pulse 97 96 Oximetry - Reevaluation(s) Reevaluation #1: 07/09/19 03:56 Case is also discussed with Dr. Pedro covering surgery tonight, regarding labs and CT findings. Reevaluation #2: 07/09/19 04:19 Case discussed with gastroenterology, Dr. Gardiner, and her treatment recommendations are incorporated. Medical Decision Making - Medical Decision Making On reevaluation, the patient is complaining that she is having some epigastric and left upper abdominal pain. There is some mild tenderness on the exam. The patient is therefore sent for CT of the abdomen pelvis, which reveals suspect gastritis. The patient did have some recurring hypotension and given additional fluid bolus. Case is discussed with Dr. Sullivan, who is covering the intensive care unit tonight and patient will be placed there initially. His treatment r ecommendations incorporated. - Lab Data Result diagrams: 07/09/19 03:01 07/08/19 23:01 Lab Results 07/08/19 07/08/19 07/08/19 Range/Units 23:01 23:01 23:01 WBC 8.7 (3.8-10.6) k/uL RBC 3.75 L (3.80-5.40) m/uL Hgb 12.7 (11.4-16.0) gm/dL Hct 37.0 (34.0-46.0) % MCV 98.8 (80.0-100.0) fL MCH 34.0 (25.0-35.0) pg MCHC 34.5 (31.0-37.0) g/dL RDW 15.5 (11.5-15.5) % Plt Count 141 L (150-450) k/uL Neutrophils % 59 % Lymphocytes % 27 % Monocytes % 9 % Eosinophils % 2 % Basophils % 1 % Neutrophils # 5.1 (1.3-7.7) k/uL Lymphocytes # 2.3 (1.0-4.8) k/uL Monocytes # 0.8 (0-1.0) k/uL Eosinophils # 0.2 (0-0.7) k/uL Basophils # 0.1 (0-0.2) k/uL Macrocytosis Slight PT 14.5 H (9.0-12.0) sec INR 1.4 H (<1.2) APTT 30.4 H (22.0-30.0) sec Sodium 136 L (137-145) mmol/L Potassium 4.1 (3.5-5.1) mmol/L Chloride 104 (98-107) mmol/L Carbon Dioxide 20 L (22-30) mmol/L Anion Gap 12 mmol/L BUN 13 (7-17) mg/dL Creatinine 0.96 (0.52-1.04) mg/dL Est GFR (CKD-EPI)AfAm 71 (>60 ml/min/1.73 sqM) Est GFR (CKD-EPI)NonAf 62 (>60 ml/min/1.73 sqM) Glucose 143 H (74-99) mg/dL Lactic Ac Sepsis Rflx Plasma Lactic Acid Randall (0.7-2.0) mmol/L Calcium 8.4 (8.4-10.2) mg/dL Total Bilirubin 1.9 H (0.2-1.3) mg/dL AST 73 H (14-36) U/L ALT 36 (9-52) U/L Alkaline Phosphatase 119 (38-126) U/L Troponin I (0.000-0.034) ng/mL Total Protein 6.4 (6.3-8.2) g/dL Albumin 3.0 L (3.5-5.0) g/dL Blood Type Blood Type Recheck Bld Type Recheck Status Antibody Screen Crossmatch Spec Expiration Date 07/08/19 07/08/19 07/08/19 Range/Units 23:01 23:01 23:01 WBC (3.8-10.6) k/uL RBC (3.80-5.40) m/uL Hgb (11.4-16.0) gm/dL Hct (34.0-46.0) % MCV (80.0-100.0) fL MCH (25.0-35.0) pg MCHC (31.0-37.0) g/dL RDW (11.5-15.5) % Plt Count (150-450) k/uL Neutrophils % % Lymphocytes % % Monocytes % % Eosinophils % % Basophils % % Neutrophils # (1.3-7.7) k/uL Lymphocytes # (1.0-4.8) k/uL Monocytes # (0-1.0) k/uL Eosinophils # (0-0.7) k/uL Basophils # (0-0.2) k/uL Macrocytosis PT (9.0-12.0) sec INR (<1.2) APTT (22.0-30.0) sec Sodium (137-145) mmol/L Potassium (3.5-5.1) mmol/L Chloride (98-107) mmol/L Carbon Dioxide (22-30) mmol/L Anion Gap mmol/L BUN (7-17) mg/dL Creatinine (0.52-1.04) mg/dL Est GFR (CKD-EPI)AfAm (>60 ml/min/1.73 sqM) Est GFR (CKD-EPI)NonAf (>60 ml/min/1.73 sqM) Glucose (74-99) mg/dL Lactic Ac Sepsis Rflx Plasma Lactic Acid Randall 5.8 H* (0.7-2.0) mmol/L Calcium (8.4-10.2) mg/dL Total Bilirubin (0.2-1.3) mg/dL AST (14-36) U/L ALT (9-52) U/L Alkaline Phosphatase (38-126) U/L Troponin I <0.012 (0.000-0.034) ng/mL Total Protein (6.3-8.2) g/dL Albumin (3.5-5.0) g/dL Blood Type O Positive Blood Type Recheck O Pos Bld Type Recheck Status No Antibody Screen NEGATIVE Crossmatch See Detail Spec Expiration Date 07/11/2019 - 230007/08/19 Range/Units 23:49 WBC (3.8-10.6) k/uL RBC (3.80-5.40) m/uL Hgb (11.4-16.0) gm/dL Hct (34.0-46.0) % MCV (80.0-100.0) fL MCH (25.0-35.0) pg MCHC (31.0-37.0) g/dL RDW (11.5-15.5) % Plt Count (150-450) k/uL Neutrophils % % Lymphocytes % % Monocytes % % Eosinophils % % Basophils % % Neutrophils # (1.3-7.7) k/uL Lymphocytes # (1.0-4.8) k/uL Monocytes # (0-1.0) k/uL Eosinophils # (0-0.7) k/uL Basophils # (0-0.2) k/uL Macrocytosis PT (9.0-12.0) sec INR (<1.2) APTT (22.0-30.0) sec Sodium (137-145) mmol/L Potassium (3.5-5.1) mmol/L Chloride (98-107) mmol/L Carbon Dioxide (22-30) mmol/L Anion Gap mmol/L BUN (7-17) mg/dL Creatinine (0.52-1.04) mg/dL Est GFR (CKD-EPI)AfAm (>60 ml/min/1.73 sqM) Est GFR (CKD-EPI)NonAf (>60 ml/min/1.73 sqM) Glucose (74-99) mg/dL Lactic Ac Sepsis Rflx Y Plasma Lactic Acid Randall (0.7-2.0) mmol/L Calcium (8.4-10.2) mg/dL Total Bilirubin (0.2-1.3) mg/dL AST (14-36) U/L ALT (9-52) U/L Alkaline Phosphatase (38-126) U/L Troponin I (0.000-0.034) ng/mL Total Protein (6.3-8.2) g/dL Albumin (3.5-5.0) g/dL Blood Type Blood Type Recheck Bld Type Recheck Status Antibody Screen Crossmatch Spec Expiration Date - EKG Data EKG shows normal: sinus rhythm, axis (Normal), intervals (Normal), QRS complexes (Normal), ST-T waves (Normal) Rate: tachycardia (Rate approximately 105 bpm.) Disposition Clinical Impression: GI bleed, Elevated liver enzymes, Lactic acidosis Disposition: ADMITTED IP TO THIS [facility] Condition: Serious
[2019-07-08] MEDS ORDERED: SODIUM CHLORIDE 0.9% 1,000 ML IV STA (23:12)
[2019-07-08] MEDS ORDERED: ONDANSETRON 4 MG/2 ML VIAL IVP STA (23:12)
[2019-07-08] MEDS ORDERED: PANTOPRAZOLE 40 MG/10 ML VIAL IVP STA (23:12)
[2019-07-08 23:20] LABS: Basophils # (A) 0.1 k/uL (0-0.2); Basophils % (A) 1 %; Eosinophils # (A) 0.2 k/uL (0-0.7); Eosinophils % (A) 2 %; HGB 12.7 gm/dL (11.4-16.0); Lymphocytes # (A) 2.3 k/uL (1.0-4.8); Lymphocytes % (A) 27 %; MCHC 34.5 g/dL (31.0-37.0); MCV 98.8 fL (80.0-100.0); Macrocytosis Slight; Mean Platelet Volume 7.8; Monocytes # (A) 0.8 k/uL (0-1.0); Monocytes % (A) 9 %; Neutrophils # (A) 5.1 k/uL (1.3-7.7); Neutrophils % (A) 59 %; Platelet Count 141 k/uL (150-450); RBC 3.75 m/uL (3.80-5.40); RDW 15.5 % (11.5-15.5); WBC 8.7 k/uL (3.8-10.6)
[2019-07-08 23:29] LABS: INR 1.4 (<1.2); Partial Thromboplastin Time 30.4 sec (22.0-30.0); Prothrombin Time 14.5 sec (9.0-12.0)
[2019-07-08 23:33] LABS: Calcium 8.4 mg/dL (8.4-10.2); Potassium 4.1 mmol/L (3.5-5.1); Total Bilirubin 1.9 mg/dL (0.2-1.3); Total Protein 6.4 g/dL (6.3-8.2)
[2019-07-08] MEDS ORDERED: SODIUM CHLORIDE 0.9% 1,500 ML IV ONE (23:50)
[2019-07-09] MEDS ORDERED: fentaNYL (PF) 50 MCG/ML 2 ML AMP IVP STA ×2 (00:13→03:04)
--- NOTE | 2019-07-09 01:13 | CT ---
EXAMINATION TYPE: CT abdomen pelvis w con DATE OF EXAM: 07/09/2019 COMPARISON: 10/22/2018 HISTORY: Abd pain CT DLP: 2142.50 mGycm Automated exposure control for dose reduction was used. TECHNIQUE: Helical acquisition of images was performed from the lung bases through the pelvis. CONTRAST: Performed without Oral Contrast and with IV Contrast, patient injected with 100 mL of Isovue 300. FINDINGS: There is subsegmental atelectasis at the posterior lung bases. There is no pericardial effusion. Ther e is some wall thickening of the gastric antrum with decreased attenuation. There are numerous small low-density foci throughout the liver. The bile ducts are not dilated. There are small calcified gall stones. Spleen is intact. There is no evidence of pancreatic mass. There is no adrenal mass. Kidneys show satisfactory contrast opacification. There is no hydronephrosi s. There is no retroperitoneal adenopathy. Uterus is anteverted. There is no free fluid in the pelvis . Lumbar spine is intact. There is no evidence of pelvic mass. Bladder distends smoothly. There is no inguinal hernia. Bony pelvis is intact. There is previous sigmoid colon surgery. Appendix is not seen. There is no sign of thickened appendix. There is no evidence of a bowel obstruc tion. There is no free air. There is no ascites. There is mild colonic diverticulosis. IMPRESSION: THERE ARE NUMEROUS LOW-ATTENUATION FOCI THROUGHOUT THE LIVER SUSPICIOUS FOR METASTATIC DISEASE. THIS IS A CHANGE COMPARED TO OLD EXAM. CHOLELITHIASIS. NO DILATED DUCTS. MILD GASTRIC WALL THICKENING INVOLVING THE GASTRIC ANTRUM COULD RELATE TO GASTRITIS. THERE IS CLEARIN G OF THE INFLAMMATORY CHANGES OF THE DESCENDING COLON COMPARED TO OLD EXAM.
[2019-07-09] MEDS ORDERED: ONDANSETRON 4 MG/2 ML VIAL IVP PRN (01:29)
[2019-07-09] MEDS ORDERED: NALOXONE 0.4 MG/ML 1 ML VIAL IV PRN (01:29)
[2019-07-09] MEDS ORDERED: SODIUM CHLORIDE 0.9% 1,000 ML IV SCH (01:30)
[2019-07-09] MEDS ORDERED: SUMAtriptan SUCCINATE 50 MG TAB PO PRN (01:32)
[2019-07-09] MEDS ORDERED: MELATONIN 5 MG TABLET PO PRN (01:32)
[2019-07-09] MEDS ORDERED: MAG HYDROX/AL HYDROX/SIMETH 30 ML, HYOSCYAMINE ELIXIR 10 ML, CIMETIDINE HCL 300 MG, LID... PO ONE ×4 (01:55)
[2019-07-09] MEDS ORDERED: NOREPINEPHRINE 4 MG in SODIUM CHLORIDE 0.9% 250 ML IV SCH (02:15)
[2019-07-09 03:36] LABS: HCT 24.8 % (34.0-46.0); HGB 8.7 gm/dL (11.4-16.0); Hypochromasia Slight; MCH 36.2 pg (25.0-35.0); MCHC 35.1 g/dL (31.0-37.0); MCV 102.9 fL (80.0-100.0); Macrocytosis Moderate; Mean Platelet Volume 7.9; Platelet Count 154 k/uL (150-450); RBC 2.41 m/uL (3.80-5.40); RDW 15.7 % (11.5-15.5); WBC 9.6 k/uL (3.8-10.6)
[2019-07-09] MEDS ORDERED: LORazepam 2 MG/ML INJ IV STA (03:50)
--- NOTE | 2019-07-09 04:23 | XR ---
EXAMINATION TYPE: XR chest 1V portable DATE OF EXAM: 07/09/2019 COMPARISON: 02/19/2016 HISTORY: Check tube placement TECHNIQUE: Single frontal view of the chest is obtained. FINDINGS: Exam is limited by underexposure. There is nasogastric tube. The lower end is not well vis ualized. Exam is limited by patient's size. There is atelectasis at the left lung base. There is no h eart failure. Right lung is clear. Bony thorax is intact. IMPRESSION: Limited exam. Nasogastric tube tip is not well seen. There is some atelectasis left lung base the same or increased compared to last exam.
[2019-07-09] MEDS ORDERED: OCTREOTIDE 500 MCG in SODIUM CHLORIDE 0.9% 250 ML IV SCH (04:30)
[2019-07-09] MEDS ORDERED: SODIUM BICARB 8.4% 50 ML SYR (1 MEQ/ML) ONE ×3 (04:35→06:08)
[2019-07-09] MEDS ORDERED: SODIUM CHLORIDE 0.9% 250 ML BAG ONE (04:35)
[2019-07-09] MEDS ORDERED: EPINEPHrine 10 ML SYRINGE (0.1 MG/ML) ONE (04:35)
[2019-07-09 04:51] LABS: Glucose,Whole Blood 271 mg/dL (75-99)
[2019-07-09] MEDS ORDERED: LORazepam 2 MG/ML INJ ONE (04:51)
[2019-07-09] MEDS ORDERED: CHLORHEXIDINE GLUCONATE 15 ML CUP MUCOUS MEM ONE (04:57)
--- NOTE | 2019-07-09 05:30 | ED ---
Medical Decision Making - Medical Decision Making I was called to the floor is a CODE BLUE for this patient. She had reportedly pulled her IV out after transfer and had not been receiving levo fed. The patient was then noted to be in PEA and to blue was activated. See the code note for medications. The patient is intubated by ASTRO TECHNICIAN. I auscultated and there are bilateral breath sounds, no breath sounds over the gastric area and there is good color capnography. At the next pulse check, the patient does have good palpable pulses. The monitor is showing sinus tachycardia rate nearly 120. Blood pressure is measurable. Given that the patient did not have adequate IVs, I started a right femoral area central line. Under ultrasound guidance, without complication. - Lab Data Result diagrams: 07/09/19 03:01 07/08/19 23:01 Lab Results 07/08/19 07/08/19 07/08/19 Range/Units 23:01 23:01 23:01 WBC 8.7 (3.8-10.6) k/uL RBC 3.75 L (3.80-5.40) m/uL Hgb 12.7 (11.4-16.0) gm/dL Hct 37.0 (34.0-46.0) % MCV 98.8 (80.0-100.0) fL MCH 34.0 (25.0-35.0) pg MCHC 34.5 (31.0-37.0) g/dL RDW 15.5 (11.5-15.5) % Plt Count 141 L (150-450) k/uL Neutrophils % 59 % Lymphocytes % 27 % Monocytes % 9 % Eosinophils % 2 % Basophils % 1 % Neutrophils # 5.1 (1.3-7.7) k/uL Lymphocytes # 2.3 (1.0-4.8) k/uL Monocytes # 0.8 (0-1.0) k/uL Eosinophils # 0.2 (0-0.7) k/uL Basophils # 0.1 (0-0.2) k/uL Macrocytosis Slight PT 14.5 H (9.0-12.0) sec INR 1.4 H (<1.2) APTT 30.4 H (22.0-30.0) sec Sodium 136 L (137-145) mmol/L Potassium 4.1 (3.5-5.1) mmol/L Chloride 104 (98-107) mmol/L Carbon Dioxide 20 L (22-30) mmol/L Anion Gap 12 mmol/L BUN 13 (7-17) mg/dL Creatinine 0.96 (0.52-1.04) mg/dL Est GFR (CKD-EPI)AfAm 71 (>60 ml/min/1.73 sqM) Est GFR (CKD-EPI)NonAf 62 (>60 ml/min/1.73 sqM) Glucose 143 H (74-99) mg/dL Lactic Ac Sepsis Rflx Plasma Lactic Acid Randall (0.7-2.0) mmol/L Calcium 8.4 (8.4-10.2) mg/dL Total Bilirubin 1.9 H (0.2-1.3) mg/dL AST 73 H (14-36) U/L ALT 36 (9-52) U/L Alkaline Phosphatase 119 (38-126) U/L Troponin I (0.000-0.034) ng/mL Total Protein 6.4 (6.3-8.2) g/dL Albumin 3.0 L (3.5-5.0) g/dL Blood Type Blood Type Recheck Bld Type Recheck Status Antibody Screen Crossmatch Spec Expiration Date 07/08/19 07/08/19 07/08/19 Range/Units 23:01 23:01 23:01 WBC (3.8-10.6) k/uL RBC (3.80-5.40) m/uL Hgb (11.4-16.0) gm/dL Hct (34.0-46.0) % MCV (80.0-100.0) fL MCH (25.0-35.0) pg MCHC (31.0-37.0) g/dL RDW (11.5-15.5) % Plt Count (150-450) k/uL Neutrophils % % Lymphocytes % % Monocytes % % Eosinophils % % Basophils % % Neutrophils # (1.3-7.7) k/uL Lymphocytes # (1.0-4.8) k/uL Monocytes # (0-1.0) k/uL Eosinophils # (0-0.7) k/uL Basophils # (0-0.2) k/uL Macrocytosis PT (9.0-12.0) sec INR (<1.2) APTT (22.0-30.0) sec Sodium (137-145) mmol/L Potassium (3.5-5.1) mmol/L Chloride (98-107) mmol/L Carbon Dioxide (22-30) mmol/L Anion Gap mmol/L BUN (7-17) mg/dL Creatinine (0.52-1.04) mg/dL Est GFR (CKD-EPI)AfAm (>60 ml/min/1.73 sqM) Est GFR (CKD-EPI)NonAf (>60 ml/min/1.73 sqM) Glucose (74-99) mg/dL Lactic Ac Sepsis Rflx Plasma Lactic Acid Randall 5.8 H* (0.7-2.0) mmol/L Calcium (8.4-10.2) mg/dL Total Bilirubin (0.2-1.3) mg/dL AST (14-36) U/L ALT (9-52) U/L Alkaline Phosphatase (38-126) U/L Troponin I <0.012 (0.000-0.034) ng/mL Total Protein (6.3-8.2) g/dL Albumin (3.5-5.0) g/dL Blood Type O Positive Blood Type Recheck O Pos Bld Type Recheck Status No Antibody Screen NEGATIVE Crossmatch See Detail Spec Expiration Date 07/11/2019 - 230007/08/19 Range/Units 23:49 WBC (3.8-10.6) k/uL RBC (3.80-5.40) m/uL Hgb (11.4-16.0) gm/dL Hct (34.0-46.0) % MCV (80.0-100.0) fL MCH (25.0-35.0) pg MCHC (31.0-37.0) g/dL RDW (11.5-15.5) % Plt Count (150-450) k/uL Neutrophils % % Lymphocytes % % Monocytes % % Eosinophils % % Basophils % % Neutrophils # (1.3-7.7) k/uL Lymphocytes # (1.0-4.8) k/uL Monocytes # (0-1.0) k/uL Eosinophils # (0-0.7) k/uL Basophils # (0-0.2) k/uL Macrocytosis PT (9.0-12.0) sec INR (<1.2) APTT (22.0-30.0) sec Sodium (137-145) mmol/L Potassium (3.5-5.1) mmol/L Chloride (98-107) mmol/L Carbon Dioxide (22-30) mmol/L Anion Gap mmol/L BUN (7-17) mg/dL Creatinine (0.52-1.04) mg/dL Est GFR (CKD-EPI)AfAm (>60 ml/min/1.73 sqM) Est GFR (CKD-EPI)NonAf (>60 ml/min/1.73 sqM) Glucose (74-99) mg/dL Lactic Ac Sepsis Rflx Y Plasma Lactic Acid Randall (0.7-2.0) mmol/L Calcium (8.4-10.2) mg/dL Total Bilirubin (0.2-1.3) mg/dL AST (14-36) U/L ALT (9-52) U/L Alkaline Phosphatase (38-126) U/L Troponin I (0.000-0.034) ng/mL Total Protein (6.3-8.2) g/dL Albumin (3.5-5.0) g/dL Blood Type Blood Type Recheck Bld Type Recheck Status Antibody Screen Crossmatch Spec Expiration Date Disposition Clinical Impression: GI bleed, Elevated liver enzymes, Lactic acidosis Disposition: ADMITTED IP TO THIS [facility] Condition: Serious Procedures - Central Line Placement Right Femoral Consent Obtained: emergent situation Patient Placed on Monitor/Pulse Ox: Yes Prep: mask, gown, gloves Central Line Prep: Chlorhexidine scrub Local Anesthesia Used: Lidocaine 1% Ultrasound Used for Placement: Yes Central Line Lumen Inserted: triple Central Line Position: good blood return, all ports aspirated, flushed, capped, sutured in place with nylon Dressing Applied: Tegaderm Patient Tolerated Procedure: well Complications: none
[2019-07-09 05:45] LABS: HCT 26.4 % (34.0-46.0); HGB 7.7 gm/dL (11.4-16.0); Hypochromasia Marked; MCHC 29.2 g/dL (31.0-37.0); Macrocytosis Marked; Mean Platelet Volume 9.1; Platelet Count 125 k/uL (150-450); RBC 2.26 m/uL (3.80-5.40); RDW 15.6 % (11.5-15.5)
[2019-07-09 05:46] LABS: MCV 116.8 fL (80.0-100.0)
[2019-07-09 05:56] LABS: ABG PCO2 43 mmHg (35-45); ABG PO2 118 mmHg (83-108); ABG TCO2 7 mmol/L (19-24); Allen Test Performed? Yes
--- NOTE | 2019-07-09 05:59 | XR ---
EXAMINATION TYPE: XR chest 1V DATE OF EXAM: 07/09/2019 COMPARISON: Today HISTORY: Check tube placement TECHNIQUE: Single frontal view of the chest is obtained. FINDINGS: There is endotracheal tube with the tip 5 cm from the guillaume. There is nasogastric tube wi th the tip overlying the gastric fundus. There is some atelectasis at the left lung base. There is no heart failure. There are no hilar masses. There are chest leads. Impression Left basilar atelectasis unchanged. Endotracheal tube and nasogastric tube in good position.
[2019-07-09] MEDS ORDERED: PROPOFOL 1,000 MG in EMPTY BAG 1 BAG IV SCH (06:00)
[2019-07-09 06:03] LABS: ABG Base Excess -31.1 mmol/L
[2019-07-09 06:11] LABS: Calcium 7.6 mg/dL (8.4-10.2); Potassium 5.7 mmol/L (3.5-5.1)
[2019-07-09 06:13] LABS: Band Neutrophils % 2 %; Lymphocytes # (M) 3.11 k/uL (1.0-4.8); Myelocytes # (M) 0.08 k/uL (0); Myelocytes % 1 %; Neutrophils % (M) 61 %; Nucleated Red Blood Cells 1 /100 WBC (0-0); Total Cells Counted 200; WBC 8.4 k/uL (3.8-10.6)
[2019-07-09] MEDS ORDERED: SODIUM BICARB 8.4% 50 ML SYR (1 MEQ/ML) IV STA ×4 (06:29→08:14)
[2019-07-09] MEDS ORDERED: NOREPINEPHRINE 32 MG in SODIUM CHLORIDE 0.9% 218 ML IV SCH (06:30)
[2019-07-09 07:10] LABS: HCT 25.2 % (34.0-46.0); HGB 7.8 gm/dL (11.4-16.0); Hypochromasia Marked; MCH 34.4 pg (25.0-35.0); MCHC 30.9 g/dL (31.0-37.0); Macrocytosis Marked; Mean Platelet Volume 9.1; Platelet Count 100 k/uL (150-450); RBC 2.26 m/uL (3.80-5.40); RDW 15.4 % (11.5-15.5); WBC 11.6 k/uL (3.8-10.6)
[2019-07-09 07:15] LABS: MCV 111.5 fL (80.0-100.0)
[2019-07-09] MEDS ORDERED: SODIUM CHLORIDE 0.9% 50 ML with VASOPRESSIN 20 UNIT IVPB SCH ×2 (07:15)
[2019-07-09 07:31] LABS: Band Neutrophils % 11 %; Lymphocytes # (M) 2.55 k/uL (1.0-4.8); Monocytes # (M) 0.12 k/uL (0-1.0); Myelocytes # (M) 0.23 k/uL (0); Myelocytes % 2 %; Neutrophils % (M) 64 %; Nucleated Red Blood Cells 0 /100 WBC (0-0); Total Cells Counted 200
--- NOTE | 2019-07-09 07:48 | P.CNPUL ---
History of Present Illness Consult date: 07/09/19 Chief complaint: Acute GI bleed History of present illness: 68-year-old female patient, alcoholic, came into the emergency department around midnight after drinking couple of shots of rum at home. According to the family the patient is alcoholic. She has had previous bouts of GI bleed. The patient was having hematemesis and she was also having maroon color stool. The patient thought that she was almost going to pass out because of the repeated episodes of hematemesis. She believes that she threw at least 5 times large volume of bright red blood. No abdominal pain. No abdominal distention. In the ED, the patient had a temperature of 97.8. She was tachycardic. She had a blood pressure of 72 or 52 initially, which improved with some fluid resuscitation. Nevertheless, just prior to her coming up to the ICU she had another large bouts of emesis and she checked her blood pressure again and she was placed on pressors. At one point the pressor infusion was discontinued accidentally and this was told to me by the emergency medicine doctor. In any rate, within few minutes of arriving to the intensive care unit, the patient had a cold and she went into cardiopulmonary arrest. She went into a PEA. She was resuscitated based on the ACLS protocol by the emergency doctor. NG tube was inserted. The exact downtime is probably somewhere between 15-20 minutes. During this time, the patient received epinephrine and CPR. The patient was intubated. NG tube was inserted and currently the patient has no output in the NG tube. Abdomen remains soft. Nevertheless, the patient is a shock state. Her lactic acid level is more than 24. Blood gases after intubation showed a pH of less than 6.8 with a pCO2 of 43 and pO2 of 118 and this was on FiO2 100%. Note that her lactic acid level on admission was 7.9. The hemoglobin dropped from 0.7 down to 7.7. The patient will receive a unit of packed RBC. She was started on s imvastatin. Currently she is on propofol 50 mcg/kg per minute. She is triggering the vent. She is on a assist-control mode with a rate of 24 and tidal volume of 400 and FiO2 of 100% and a PEEP of 5. No urine output. Upper lumen catheter has been inserted in the right femoral area. No pulses in the groin. No pulses in the lower extremities. No pulses in the radials. These are only obtained by Doppler signal. Unable to put an arterial line because of the massive hemodynamic instability and absence of palpable pulses. A CAT scan of the abdomen was done in the emergency department and showed a low attenuating numerous foci throughout the liver suspicious for metastatic disease. Was also mild gastric wall thickening consistent with some gastritis. The patient has had previous admissions for GI bleed. Back in 2014, the patient had an endoscopy including an EGD that showed hiatal hernia without obvious is a for jet his ulcers or strictures or Denny's esophagus. There was erosive antral gastritis with multiple erosions and small ulcers with no evidence of any active bleeding. Subsequently, patient had a colonoscopy on 03/28/2019 and the patient's was found to have diverticulosis without evidence of diverticulitis. Currently, the coags show an INR of 1.4 with a PT of 14.5 and a PTT of 30.5. Review of Systems ROS unobtainable: due to endotracheal tube Past Medical History Past Medical History: Diabetes Mellitus, GERD/Reflux, GI Bleed, Hearing Disorder / Deafness, Seizure Disorder, Syncope Additional Past Medical History / Comment(s): hx. diverticulitis/diverticulosis, alcoholism,,hiatal hernia, legally deaf left ear and mild loss of hearing rt ear, poor vision left eye., past admission for GI bleeding, peptic ulcer, migraines, last seizure in her 20"s., Hx of Hepatitis C and possible Hepatitis A (no tx), chronic back pain, History of Any Multi-Drug Resistant Organisms: None Reported Past Surgical History: Appendectomy, Bowel Resection, Cholecystectomy, Orthopedic Surgery, Tonsillectomy Additional Past Surgical History / Comment(s): recent EGD, plate/screws in left elbow,egd/colonoscopy bowel polyps, hina cataracts with lens implants. lt eye sx for detatched retina Past Anesthesia/Blood Transfusion Reactions: No Reported Reaction Past Psychological History: Anxiety Smoking Status: Current every day smoker Past Alcohol Use History: Daily, Heavy Past Drug Use History: None Reported - Past Family History Mother Family Medical History: Cancer, Liver Disease Additional Family Medical History / Comment(s): cancer of uterus Father Family Medical History: CVA/TIA, Hypertension, Myocardial Infarction ([place]) Additional Family Medical History / Comment(s): father from stroke Sister(s) Family Medical History: Cancer Additional Family Medical History / Comment(s): Breast Cancer Medications and Allergies Home Medications Medication Instructions Recorded Confirmed Type SUMAtriptan SUCCINATE [Sumatriptan 100 mg PO DAILY PRN 02/18/19 07/08/19 History Succinate] Melatonin 5 mg PO HS PRN 07/08/19 07/08/19 History Allergies Allergy/AdvReac Type Severity Reaction Status Date / Time morphine AdvReac Nausea & Verified 07/08/19 22:57 Vomiting Physical Exam Vitals: Vital Signs Temp Pulse Resp BP Pulse Ox 07/09/19 06:40 122 H 36 H 87/36 07/09/19 06:30 123 H 37 H 95/53 98 07/09/19 06:20 126 H 35 H 82/23 99 07/09/19 06:10 125 H 37 H 98/55 98 07/09/19 06:00 123 H 37 H 86/74 92 L 07/09/19 05:50 126 H 34 H 86/26 99 07/09/19 05:47 126 H 33 H 94/24 92 L 07/09/19 05:45 98.3 F 123 H 32 H 86/74 99 07/09/19 05:26 98.2 F 128 H 28 H 80/42 94 L 07/09/19 04:56 98 F 130 H 30 H 71/37 95 07/09/19 04:55 96 07/09/19 04:46 98.1 F 128 H 30 H 88/36 94 L 07/09/19 04:20 68/57 07/09/19 04:10 98.3 F 147 H 43 H 68/57 07/09/19 04:00 138 H 18 113/57 96 07/09/19 03:30 121 H 19 91/59 97 07/09/19 03:20 118 H 17 105/63 97 07/09/19 03:10 120 H 17 62/34 98 07/09/19 02:40 115 H 18 60/45 97 07/09/19 02:00 92 18 67/34 98 07/09/19 01:30 105 H 19 95/32 97 07/09/19 00:40 98 18 109/78 98 07/08/19 23:30 98 18 92/68 98 07/08/19 23:00 100 19 98/64 98 07/08/19 22:47 97.8 F 109 H 24 72/52 99 Intake and Output 07/08/19 07/09/19 07/09/19 22:59 06:59 14:59 Intake Total 796.673 Output Total 5 Balance 791.673 Intake: IV 125 Sodium Chloride 0.9% 1, 125 000 ml @ 125 mls/hr IV . Q8H ANMOL Rx#:[id number] Intake, IV Titration 51.673 Amount Norepinephrine 4 mg In 51.673 Sodium Chloride 0.9% 250 ml @ 0.05 MCG/KG/MIN 19. 874 mls/hr IV .[id number] ANMOL Rx#:[id number] Blood Product 620 Rc As-1 Unit 310 [id number] Output: Urine 5 Other: Weight 104.326 kg Completely unresponsive and intubated on a mechanical ventilator on the 15 g of propofol. Orogastric and orotracheal tube are both in place. The patient is pale. No icterus. Head exam was generally normal. There was no scleral icterus or corneal arcus. Mucous membranes were moist. Neck was supple and without jugular venous distension, thyromegaly, or carotid bruits. Carotids were easily palpable bilaterally. There was no adenopathy. Lungs were clear to auscultation and percussion, and with normal diaphragmatic excursion. No wheezes or rales were noted. Cardiac exam revealed the PMI to be normally situated and sized. The rhythm was regular and no extrasystoles were noted during several minutes of auscultation. The first and second heart sounds were normal and physiologic splitting of the second heart sound was noted. There were no murmurs, rubs, clicks, or gallops. Abdominal exam revealed normal bowel sounds. The abdomen was soft, non-tender, and without masses, organomegaly, or appreciable enlargement of the abdominal aorta. Extremities are cold and clammy and the patient is vasoconstricted and there is no palpable pulses in the radials in the femorals in the lower extremities bilaterally. Pulses can be obtained by Doppler. No cyanosis. Neurologically, the patient has 3-4 mm pupils are sluggishly reactive to light. Weak gag. She is breathing above the vent. She is triggering the mechanical ventilator. Not withdrawing to any deep painful stimulation. Unresponsive. No facial asymmetry. Motor and sensory function cannot be assessed. Examination of the skin revealed no evidence of significant rashes, suspicious appearing nevi or other concerning lesions. Results - Laboratory Findings CBC and BMP: 07/09/19 06:15 07/09/19 05:25 ABG ABG pH <6.80 (7.35-7.45) L* 07/09/19 05:56 ABG pCO2 43 mmHg (35-45) 07/09/19 05:56 ABG pO2 118 mmHg (83-108) H 07/09/19 05:56 ABG O2 Saturation 91.0 % (94-97) L 07/09/19 05:56 PT/INR, D-dimer PT 14.5 sec (9.0-12.0) H 07/08/19 23:01 INR 1.4 (<1.2) H 07/08/19 23:01 Abnormal lab findings: Abnormal Labs 07/08/19 07/08/19 07/08/19 23:01 23:01 23:01 WBC RBC 3.75 L Hgb Hct MCV MCH MCHC RDW Plt Count 141 L Neutrophils # (Manual) Myelocytes # (Manual) Nucleated RBCs Macrocytosis PT 14.5 H INR 1.4 H APTT 30.4 H ABG pH ABG pO2 ABG HCO3 ABG Total CO2 ABG O2 Saturation Sodium 136 L Potassium Chloride Carbon Dioxide 20 L Creatinine Glucose 143 H POC Glucose (mg/dL) Plasma Lactic Acid Randall Calcium Total Bilirubin 1.9 H AST 73 H Troponin I Albumin 3.0 L Crossmatch 07/08/19 07/08/19 07/09/19 23:01 23:01 03:01 WBC RBC 2.41 L Hgb 8.7 L D Hct 24.8 L MCV 102.9 H MCH 36.2 H MCHC RDW 15.7 H Plt Count Neutrophils # (Manual) Myelocytes # (Manual) Nucleated RBCs Macrocytosis PT INR APTT ABG pH ABG pO2 ABG HCO3 ABG Total CO2 ABG O2 Saturation Sodium Potassium Chloride Carbon Dioxide Creatinine Glucose POC Glucose (mg/dL) Plasma Lactic Acid Randall 5.8 H* Calcium Total Bilirubin AST Troponin I Albumin Crossmatch See Detail 07/09/19 07/09/19 07/09/19 03:01 04:23 05:25 WBC RBC 2.26 L Hgb 7.7 L Hct 26.4 L MCV 116.8 H D MCH MCHC 29.2 L RDW 15.6 H Plt Count 125 L Neutrophils # (Manual) Myelocytes # (Manual) 0.08 H Nucleated RBCs 1 H Macrocytosis Marked A PT INR APTT ABG pH ABG pO2 ABG HCO3 ABG Total CO2 ABG O2 Saturation Sodium Potassium Chloride Carbon Dioxide Creatinine Glucose POC Glucose (mg/dL) 271 H Plasma Lactic Acid Randall 7.9 H* Calcium Total Bilirubin AST Troponin I Albumin Crossmatch 07/09/19 07/09/19 07/09/19 05:25 05:25 05:25 WBC RBC Hgb Hct MCV MCH MCHC RDW Plt Count Neutrophils # (Manual) Myelocytes # (Manual) Nucleated RBCs Macrocytosis PT INR APTT ABG pH ABG pO2 ABG HCO3 ABG Total CO2 ABG O2 Saturation Sodium Potassium 5.7 H Chloride 109 H Carbon Dioxide 8 L* Creatinine 1.46 H Glucose 258 H POC Glucose (mg/dL) Plasma Lactic Acid Randall >24.0 H* Calcium 7.6 L Total Bilirubin AST Troponin I 0.204 H* Albumin Crossmatch 07/09/19 07/09/19 05:56 06:15 WBC 11.6 H RBC 2.26 L Hgb 7.8 L Hct 25.2 L MCV 111.5 H D MCH MCHC 30.9 L RDW Plt Count 100 L Neutrophils # (Manual) 8.70 H Myelocytes # (Manual) 0.23 H Nucleated RBCs Macrocytosis Marked A PT INR APTT ABG pH <6.80 L* ABG pO2 118 H ABG HCO3 5 L* ABG Total CO2 7 L ABG O2 Saturation 91.0 L Sodium Potassium Chloride Carbon Dioxide Creatinine Glucose POC Glucose (mg/dL) Plasma Lactic Acid Randall Calcium Total Bilirubin AST Troponin I Albumin Crossmatch - Diagnostic Findings Chest x-ray: image reviewed Assessment and Plan Plan: 1 acute cardio pulmonary arrest, likely secondary to massive GI bleeding, the pa tient has a downtime of at least 15 minutes based on the Court sheets and the patient currently intubated on a mechanical ventilator. 2 shock, predominantly hypovolemic in nature. Currently high-dose pressors and levo fed is running at high dose at 70 mcg/kg per minute in addition to IV fluids. 3 severe lactic acidosis secondary to above 4 severe metabolic acidosis secondary to above 5 massive GI bleeding like have an upper GI source 6 history of alcoholism 7 blood loss anemia with a significant drop in hemoglobin down to 7.8 8 previous bouts of GI bleeding 9 migraines 10 diverticulosis 11 impaired hearing in the left ear/deafness 12 questionable history of remote hepatitis C, antibodies are negative for now Plan Continue normal saline and another 2 L of bolus will be given. Continue norepinephrine infusion. Start the patient on vasopressin. Monitor hemoglobin and transfuse the patient with 2 units of packed RBC. Aggressive fluid resuscitation. IV Protonix. Keep patient nothing by mouth. Continue low-dose sedation. Attempt to insert an outlying catheter once the patient's hemodynamics improved and the patient has palpable pulses. Monitor the coagulation profile. Continue vent support. The appropriate vent changes were done. We'll check echocardiogram. Empiric IV antibiotics with Rocephin. We'll continue to follow make further recommendations. Condition is extremely critical. GI is on the case. Prognosis poor baseline above-mentioned comorbidities. Time with Patient: Greater than 30
[2019-07-09] MEDS ORDERED: SODIUM CHLORIDE 0.9% 1,000 ML IV ONE ×2 (07:49→07:50)
[2019-07-09 08:10] LABS: ABG Oxygen Saturation 20.7 % (94-97); ABG PCO2 53 mmHg (35-45); ABG TCO2 11 mmol/L (19-24); Allen Test Performed? Yes
[2019-07-09 08:15] LABS: ABG HCO3 10 mmol/L (21-25); ABG PH 6.86 (7.35-7.45); ABG PO2 25 mmHg (83-108)
[2019-07-09] MEDS ORDERED: PANTOPRAZOLE 40 MG/10 ML VIAL IV SCH (09:00)
[2019-07-09] MEDS ORDERED: NICOTINE 14MG/24HR PATCH TRANSDERM SCH (09:00)
[2019-07-09] MEDS ORDERED: CHLORHEXIDINE GLUCONATE 15 ML CUP MUCOUS MEM SCH (09:00)
[2019-07-09 09:46] LABS: Glucose,Whole Blood 174 mg/dL (75-99)
[2019-07-09 10:05] VITALS: TEMP 95
[2019-07-09] MEDS: INSULIN ASPART (NovoLOG) 100 UNIT/ML VIAL SQ SCH ×2 (10:59→11:26)
[2019-07-09 11:15] LABS: Glucose,Whole Blood 125 mg/dL (75-99)
[2019-07-09 11:23] VITALS: BP 129/112
[2019-07-09 12:32] LABS: Anisocytosis Slight; Hypochromasia Marked; MCH 30.5 pg (25.0-35.0); MCHC 28.3 g/dL (31.0-37.0); MCV 107.9 fL (80.0-100.0); Macrocytosis Marked; Mean Platelet Volume 8.7; RBC 3.06 m/uL (3.80-5.40); RDW 17.7 % (11.5-15.5)
--- NOTE | 2019-07-09 12:40 | CONS ---
CONSULTATION DATE OF DICTATION: 07/09/2019 REASON FOR CONSULTATION: Acute upper GI bleed/hypertension. HISTORY OF PRESENT ILLNESS: The patient is a 68-year-old white female with a history of heavy alcohol abuse for the last 30 years' duration who drinks at least 3 to 4 shots of rum at home every day. She apparently had 2 episodes of hematemesis at home. She called her daughter around 10 p.m. last night after having 2 cupfuls of hematemesis. She called her friend, who drove her to the emergency room. She came to the emergency room and her initial hemoglobin was 12.5 g/dL. While in the ER, she had another 2 episodes of hematemesis. She was not complaining of any abdominal pain. She never had these symptoms in the past. On review of her records, she did have an upper endoscopy in 2016 that showed no esophageal varices. A colonoscopy done in March [address] Howell showed diverticulosis. In the ER, she became extremely hypotensive and she was resuscitated with some fluids and subsequently transferred to the intensive care unit. On her way to the ICU she got one unit of blood. Two hours later her repeat CBC dropped to 8.5 g/dL. The patient went to the ICU and at 4:30 this morning she had a cardiopulmonary arrest. She was resuscitated for 15 to 20 minutes and subsequently was intubated and has been on pressors with wide-open Levophed and dopamine. Patient's systolic blood pressure was in the 50s presently. Dr. Sullivan at the bedside replacing IV line presently. LABS: Repeat labs showed a hemoglobin of 7.6. Lactic acid went up to 12. Platelets normal. INR was 1.4. PAST MEDICAL HISTORY: Past medical history is significant for: 1. Diabetes mellitus. 2. Hypertension. 3. Seizure disorder. 4. Chronic liver disease. 5. Gastroesophageal reflux disease. 6. Diverticulosis. 7. Questionable history of hepatitis C. PAST SURGICAL HISTORY: 1. Appendectomy. 2. Cholecystectomy. 3. Tonsillectomy. 4. EGD in 2016 that showed small hiatal hernia and gastritis. 5. Colonoscopy in March [address] Howell showed diverticulosis. FAMILY HISTORY: Mother had cancer of the uterus and chronic liver disease. Father had coronary artery disease, status post AL. Sister has breast cancer. REVIEW OF SYSTEMS: Patient is currently intubated and sedated and hence could not be obtained. PHYSICAL EXAMINATION: VITAL SIGNS: Her blood pressure is 53/20, pulse rate 140 per minute. Intubated. Sedated. HEENT examination unremarkable. Conjunctivae pink. Not icteric. Sclerae anicteric. Oral cavity no lesions. NECK: No JVD. CHEST: Clear to auscultation. HEART: Regular rate and rhythm. ABDOMEN: Obese. It was non-distended, non-tender. Liver and spleen were not palpable. EXTREMITIES: No pedal edema. SKIN: No rashes. NEUROLOGIC: She is sedated. LABS: Labs done in the emergency room showed WBC 8.7, hemoglobin 12.7, platelets 141. Now hemoglobin is 7.8, WBC 11.6 and platelets 100,000. INR was 1.4. ABG showed a pH of less than 6.8, pCO2 43, PO2 118, bicarbonate 5. Sodium 142, potassium 5.7, chloride 109, CO2 8, BUN 14, creatinine 1.4, plasma lactic acid more than 24. ALT and AST were 73 and 36 T-bilirubin 1.9. Serum alcohol was less than 10. IMPRESSION: 1. Massive upper gastrointestinal bleed with severe hemodynamic instability causing cardiopulmonary arrest. Patient dropped her hemoglobin from 12.5 to 7.5 g/dL in the last 6 to 8 hours. Presently intubated on the vent with severe hemodynamic instability. Dr. Sullivan at the bedside placing arterial line. 2. History of possible cirrhosis of the liver related to alcohol use. CT of the abdomen in the emergency room showed multiple small lesions in the liver suspicious for diffuse liver disease versus metastatic liver disease. 3. Severe lactic acidosis secondary to hypoperfusion. 4. Metabolic acidosis. 5. Heavy alcohol use. RECOMMENDATIONS: Continue with resuscitation. Patient presently on Levophed and will be started on vasopressor drip. IV Sandostatin was already started in the emergency room, but it is going to be on hold because of severe tension. Continue with IV Protonix. I had a lengthy discussion with the patient's family in the waiting area regarding her overall serious condition and guarded prognosis. Because of the severe hemodynamic instability, at this time she is not a candidate for any endoscopic intervention at the present time. Will continue with fluid resuscitation as well as blood products as needed and follow her closely during her hospital stay. Thank you for this consultation. MMODL / IJN: [id number] /
[2019-07-09 12:49] LABS: HGB 9.3 gm/dL (11.4-16.0)
--- NOTE | 2019-07-09 14:39 | P.HPIM ---
History of Present Illness H&P Date: 07/09/19 Chief Complaint: Hematemesis This patient was not seen by me. Patient in the ICU before she could be seen by me. Please refer to the notes of the training consultant and business process lead for more notes. Past Medical History Past Medical History: Diabetes Mellitus, GERD/Reflux, GI Bleed, Hearing Disorder / Deafness, Seizure Disorder, Syncope Additional Past Medical History / Comment(s): hx. diverticulitis/diverticulosis, alcoholism,,hiatal hernia, legally deaf left ear and mild loss of hearing rt ear, poor vision left eye., past admission for GI bleeding, peptic ulcer, migraines, last seizure in her 20"s., Hx of Hepatitis C and possible Hepatitis A (no tx), chronic back pain, History of Any Multi-Drug Resistant Organisms: None Reported Past Surgical History: Appendectomy, Bowel Resection, Cholecystectomy, Orthopedic Surgery, Tonsillectomy Additional Past Surgical History / Comment(s): recent EGD, plate/screws in left elbow,egd/colonoscopy bowel polyps, hina cataracts with lens implants. lt eye sx for detatched retina Past Anesthesia/Blood Transfusion Reactions: No Reported Reaction Past Psychological History: Anxiety Smoking Status: Current every day smoker Past Alcohol Use History: Daily, Heavy Past Drug Use History: None Reported - Past Family History Mother Family Medical History: Cancer, Liver Disease Additional Family Medical History / Comment(s): cancer of uterus Father Family Medical History: CVA/TIA, Hypertension, Myocardial Infarction ([place]) Additional Family Medical History / Comment(s): father from stroke Sister(s) Family Medical History: Cancer Additional Family Medical History / Comment(s): Breast Cancer Medications and Allergies Home Medications Medication Instructions Recorded Confirmed Type SUMAtriptan SUCCINATE [Sumatriptan 100 mg PO DAILY PRN 02/18/19 07/08/19 History Succinate] Melatonin 5 mg PO HS PRN 07/08/19 07/08/19 History Allergies Allergy/AdvReac Type Severity Reaction Status Date / Time morphine AdvReac Nausea & Verified 07/08/19 22:57 Vomiting Physical Exam Vitals: Vital Signs Temp Pulse Resp BP Pulse Ox 07/09/19 11:20 92 21 129/112 07/09/19 11:10 102 H 23 133/58 07/09/19 10:50 112 H 33 H 136/23 07/09/19 10:40 113 H 32 H 135/21 07/09/19 10:30 112 H 37 H 113/69 07/09/19 10:15 114 H 39 H 73/37 07/09/19 10:00 113 H 39 H 79/25 07/09/19 09:45 95 F L 112 H 39 H 79/32 07/09/19 09:30 107 H 28 H 92/22 07/09/19 09:15 108 H 39 H 91/43 07/09/19 09:00 110 H 36 H 91/35 07/09/19 08:45 116 H 35 H 91/24 07/09/19 08:30 117 H 35 H 97/24 07/09/19 08:28 94.7 F L 118 H 33 H 97/24 99 07/09/19 08:15 121 H 36 H 104/61 07/09/19 08:00 123 H 36 H 91/31 99 07/09/19 07:45 94.7 F L 124 H 35 H 98/44 07/09/19 07:30 125 H 39 H 111/26 98 07/09/19 07:15 121 H 38 H 77/29 97 07/09/19 07:00 121 H 37 H 60/32 97 07/09/19 06:45 121 H 36 H 77/45 97 07/09/19 06:40 122 H 36 H 87/36 07/09/19 06:30 123 H 37 H 95/53 98 07/09/19 06:20 126 H 35 H 82/23 99 07/09/19 06:10 125 H 37 H 98/55 98 07/09/19 06:00 123 H 37 H 86/74 92 L 07/09/19 05:50 126 H 34 H 86/26 99 07/09/19 05:47 126 H 33 H 94/24 92 L 07/09/19 05:45 98.3 F 123 H 32 H 86/74 99 07/09/19 05:26 98.2 F 128 H 28 H 80/42 94 L 07/09/19 04:56 98 F 130 H 30 H 71/37 95 07/09/19 04:55 96 07/09/19 04:46 98.1 F 128 H 30 H 88/36 94 L 09/28/19 04:20 68/57 07/09/19 04:10 98.3 F 147 H 43 H 68/57 07/09/19 04:00 138 H 18 113/57 96 07/09/19 03:30 121 H 19 91/59 97 07/09/19 03:20 118 H 17 105/63 97 07/09/19 03:10 120 H 17 62/34 98 07/09/19 02:40 115 H 18 60/45 97 07/09/19 02:00 92 18 67/34 98 07/09/19 01:30 105 H 19 95/32 97 07/09/19 00:40 98 18 109/78 98 07/08/19 23:30 98 18 92/68 98 07/08/19 23:00 100 19 98/64 98 07/08/19 22:47 97.8 F 109 H 24 72/52 99 Intake and Output 07/08/19 07/09/19 07/09/19 22:59 06:59 14:59 Intake Total 140.027 0249.365 Output Total 50 0 Balance 482.333 1679.365 Intake: IV 125 2394.62 Sodium Chloride 0.9% 1, 125 2375 000 ml @ 125 mls/hr IV . Q8H ANMOL Rx#:[id number] Sodium Chloride 0.9% 50 19.62 ml @ 0.04 UNITS/MIN 6.12 mls/hr IVPB .Q8H20M ANMOL with Vasopressin 20 unit Rx#:[id number] Intake, IV Titration 51.673 201.745 Amount Norepinephrine 32 mg In 152.578 Sodium Chloride 0.9% 218 ml @ 0.05 MCG/KG/MIN 2. 445 mls/hr IV .Q24H ANMOL Rx#:[id number] Norepinephrine 4 mg In 51.673 Sodium Chloride 0.9% 250 ml @ 0.05 MCG/KG/MIN 19. 874 mls/hr IV .[id number] ANMOL Rx#:[id number] Octreotide 500 mcg In 49.167 Sodium Chloride 0.9% 250 ml @ 50 MCG/HR 25 mls/hr IV .Q10H ANMOL Rx#: [id number] Blood Product 620 310 Rc As-1 Unit 310 [id number] Rc As-1 Unit 310 [id number] Rc As-1 Unit 0 [id number] Output: Urine 50 0 Uretheral (Sousa) 45 Other: Voiding Method Indwelling Catheter Weight 104.326 kg Results CBC & Chem 7: 07/09/19 11:52 07/09/19 05:25 Labs: Abnormal Lab Results - Last 24 Hours (Table) 07/08/19 07/08/19 07/08/19 Range/Units 23:01 23:01 23:01 WBC (3.8-10.6) k/uL RBC 3.75 L (3.80-5.40) m/uL Hgb (11.4-16.0) gm/dL Hct (34.0-46.0) % MCV (80.0-100.0) fL MCH (25.0-35.0) pg MCHC (31.0-37.0) g/dL RDW (11.5-15.5) % Plt Count 141 L (150-450) k/uL Neutrophils # (Manual) (1.3-7.7) k/uL Myelocytes # (Manual) (0) k/uL Nucleated RBCs (0-0) /100 WBC Macrocytosis PT 14.5 H (9.0-12.0) sec INR 1.4 H (<1.2) APTT 30.4 H (22.0-30.0) sec ABG pH (7.35-7.45) ABG pCO2 (35-45) mmHg ABG pO2 (83-108) mmHg ABG HCO3 (21-25) mmol/L ABG Total CO2 (19-24) mmol/L ABG O2 Saturation (94-97) % Sodium 136 L (137-145) mmol/L Potassium (3.5-5.1) mmol/L Chloride (98-107) mmol/L Carbon Dioxide 20 L (22-30) mmol/L Creatinine (0.52-1.04) mg/dL Glucose 143 H (74-99) mg/dL POC Glucose (mg/dL) (75-99) mg/dL Plasma Lactic Acid Randall (0.7-2.0) mmol/L Calcium (8.4-10.2) mg/dL Total Bilirubin 1.9 H (0.2-1.3) mg/dL AST 73 H (14-36) U/L Troponin I (0.000-0.034) ng/mL Albumin 3.0 L (3.5-5.0) g/dL Crossmatch 07/08/19 07/08/19 07/09/19 Range/Units 23:01 23:01 03:01 WBC (3.8-10.6) k/uL RBC 2.41 L (3.80-5.40) m/uL Hgb 8.7 L D (11.4-16.0) gm/dL Hct 24.8 L (34.0-46.0) % MCV 102.9 H (80.0-100.0) fL MCH 36.2 H (25.0-35.0) pg MCHC (31.0-37.0) g/dL RDW 15.7 H (11.5-15.5) % Plt Count (150-450) k/uL Neutrophils # (Manual) (1.3-7.7) k/uL Myelocytes # (Manual) (0) k/uL Nucleated RBCs (0-0) /100 WBC Macrocytosis PT (9.0-12.0) sec INR (<1.2) APTT (22.0-30.0) sec ABG pH (7.35-7.45) ABG pCO2 (35-45) mmHg ABG pO2 (83-108) mmHg ABG HCO3 (21-25) mmol/L ABG Total CO2 (19-24) mmol/L ABG O2 Saturation (94-97) % Sodium (137-145) mmol/L Potassium (3.5-5.1) mmol/L Chloride (98-107) mmol/L Carbon Dioxide (22-30) mmol/L Creatinine (0.52-1.04) mg/dL Glucose (74-99) mg/dL POC Glucose (mg/dL) (75-99) mg/dL Plasma Lactic Acid Randall 5.8 H* (0.7-2.0) mmol/L Calcium (8.4-10.2) mg/dL Total Bilirubin (0.2-1.3) mg/dL AST (14-36) U/L Troponin I (0.000-0.034) ng/mL Albumin (3.5-5.0) g/dL Crossmatch See Detail 07/09/19 07/09/19 07/09/19 Range/Units 03:01 04:23 05:25 WBC (3.8-10.6) k/uL RBC 2.26 L (3.80-5.40) m/uL Hgb 7.7 L (11.4-16.0) gm/dL Hct 26.4 L (34.0-46.0) % MCV 116.8 H D (80.0-100.0) fL MCH (25.0-35.0) pg MCHC 29.2 L (31.0-37.0) g/dL RDW 15.6 H (11.5-15.5) % Plt Count 125 L (150-450) k/uL Neutrophils # (Manual) (1.3-7.7) k/uL Myelocytes # (Manual) 0.08 H (0) k/uL Nucleated RBCs 1 H (0-0) /100 WBC Macrocytosis Marked A PT (9.0-12.0) sec INR (<1.2) APTT (22.0-30.0) sec ABG pH (7.35-7.45) ABG pCO2 (35-45) mmHg ABG pO2 (83-108) mmHg ABG HCO3 (21-25) mmol/L ABG Total CO2 (19-24) mmol/L ABG O2 Saturation (94-97) % Sodium (137-145) mmol/L Potassium (3.5-5.1) mmol/L Chloride (98-107) mmol/L Carbon Dioxide (22-30) mmol/L Creatinine (0.52-1.04) mg/dL Glucose (74-99) mg/dL POC Glucose (mg/dL) 271 H (75-99) mg/dL Plasma Lactic Acid Randall 7.9 H* (0.7-2.0) mmol/L Calcium (8.4-10.2) mg/dL Total Bilirubin (0.2-1.3) mg/dL AST (14-36) U/L Troponin I (0.000-0.034) ng/mL Albumin (3.5-5.0) g/dL Crossmatch 07/09/19 07/09/19 07/09/19 Range/Units 05:25 05:25 05:25 WBC (3.8-10.6) k/uL RBC (3.80-5.40) m/uL Hgb (11.4-16.0) gm/dL Hct (34.0-46.0) % MCV (80.0-100.0) fL MCH (25.0-35.0) pg MCHC (31.0-37.0) g/dL RDW (11.5-15.5) % Plt Count (150-450) k/uL Neutrophils # (Manual) (1.3-7.7) k/uL Myelocytes # (Manual) (0) k/uL Nucleated RBCs (0-0) /100 WBC Macrocytosis PT (9.0-12.0) sec INR (<1.2) APTT (22.0-30.0) sec ABG pH (7.35-7.45) ABG pCO2 (35-45) mmHg ABG pO2 (83-108) mmHg ABG HCO3 (21-25) mmol/L ABG Total CO2 (19-24) mmol/L ABG O2 Saturation (94-97) % Sodium (137-145) mmol/L Potassium 5.7 H (3.5-5.1) mmol/L Chloride 109 H (98-107) mmol/L Carbon Dioxide 8 L* (22-30) mmol/L Creatinine 1.46 H (0.52-1.04) mg/dL Glucose 258 H (74-99) mg/dL POC Glucose (mg/dL) (75-99) mg/dL Plasma Lactic Acid Randall >24.0 H* (0.7-2.0) mmol/L Calcium 7.6 L (8.4-10.2) mg/dL Total Bilirubin (0.2-1.3) mg/dL AST (14-36) U/L Troponin I 0.204 H* (0.000-0.034) ng/mL Albumin (3.5-5.0) g/dL Crossmatch 07/09/19 07/09/19 07/09/19 Range/Units 05:56 06:15 08:01 WBC 11.6 H (3.8-10.6) k/uL RBC 2.26 L (3.80-5.40) m/uL Hgb 7.8 L (11.4-16.0) gm/dL Hct 25.2 L (34.0-46.0) % MCV 111.5 H D (80.0-100.0) fL MCH (25.0-35.0) pg MCHC 30.9 L (31.0-37.0) g/dL RDW (11.5-15.5) % Plt Count 100 L (150-450) k/uL Neutrophils # (Manual) 8.70 H (1.3-7.7) k/uL Myelocytes # (Manual) 0.23 H (0) k/uL Nucleated RBCs (0-0) /100 WBC Macrocytosis Marked A PT (9.0-12.0) sec INR (<1.2) APTT (22.0-30.0) sec ABG pH <6.80 L* 6.86 L* (7.35-7.45) ABG pCO2 53 H (35-45) mmHg ABG pO2 118 H 25 L* (83-108) mmHg ABG HCO3 5 L* 10 L* (21-25) mmol/L ABG Total CO2 7 L 11 L (19-24) mmol/L ABG O2 Saturation 91.0 L 20.7 L (94-97) % Sodium (137-145) mmol/L Potassium (3.5-5.1) mmol/L Chloride (98-107) mmol/L Carbon Dioxide (22-30) mmol/L Creatinine (0.52-1.04) mg/dL Glucose (74-99) mg/dL POC Glucose (mg/dL) (75-99) mg/dL Plasma Lactic Acid Randall (0.7-2.0) mmol/L Calcium (8.4-10.2) mg/dL Total Bilirubin (0.2-1.3) mg/dL AST (14-36) U/L Troponin I (0.000-0.034) ng/mL Albumin (3.5-5.0) g/dL Crossmatch 07/09/19 07/09/19 07/09/19 Range/Units 09:34 10:15 11:02 WBC (3.8-10.6) k/uL RBC (3.80-5.40) m/uL Hgb (11.4-16.0) gm/dL Hct (34.0-46.0) % MCV (80.0-100.0) fL MCH (25.0-35.0) pg MCHC (31.0-37.0) g/dL RDW (11.5-15.5) % Plt Count (150-450) k/uL Neutrophils # (Manual) (1.3-7.7) k/uL Myelocytes # (Manual) (0) k/uL Nucleated RBCs (0-0) /100 WBC Macrocytosis PT (9.0-12.0) sec INR (<1.2) APTT (22.0-30.0) sec ABG pH (7.35-7.45) ABG pCO2 (35-45) mmHg ABG pO2 (83-108) mmHg ABG HCO3 (21-25) mmol/L ABG Total CO2 (19-24) mmol/L ABG O2 Saturation (94-97) % Sodium (137-145) mmol/L Potassium (3.5-5.1) mmol/L Chloride (98-107) mmol/L Carbon Dioxide (22-30) mmol/L Creatinine (0.52-1.04) mg/dL Glucose (74-99) mg/dL POC Glucose (mg/dL) 174 H 125 H (75-99) mg/dL Plasma Lactic Acid Randall 20.7 H* (0.7-2.0) mmol/L Calcium (8.4-10.2) mg/dL Total Bilirubin (0.2-1.3) mg/dL AST (14-36) U/L Troponin I (0.000-0.034) ng/mL Albumin (3.5-5.0) g/dL Crossmatch 07/09/19 Range/Units 11:52 WBC 20.4 H (3.8-10.6) k/uL RBC 3.06 L (3.80-5.40) m/uL Hgb 9.3 L D (11.4-16.0) gm/dL Hct 33.0 L (34.0-46.0) % MCV 107.9 H (80.0-100.0) fL MCH (25.0-35.0) pg MCHC 28.3 L (31.0-37.0) g/dL RDW 17.7 H (11.5-15.5) % Plt Count (150-450) k/uL Neutrophils # (Manual) (1.3-7.7) k/uL Myelocytes # (Manual) (0) k/uL Nucleated RBCs (0-0) /100 WBC Macrocytosis Marked A PT (9.0-12.0) sec INR (<1.2) APTT (22.0-30.0) sec ABG pH (7.35-7.45) ABG pCO2 (35-45) mmHg ABG pO2 (83-108) mmHg ABG HCO3 (21-25) mmol/L ABG Total CO2 (19-24) mmol/L ABG O2 Saturation (94-97) % Sodium (137-145) mmol/L Potassium (3.5-5.1) mmol/L Chloride (98-107) mmol/L Carbon Dioxide (22-30) mmol/L Creatinine (0.52-1.04) mg/dL Glucose (74-99) mg/dL POC Glucose (mg/dL) (75-99) mg/dL Plasma Lactic Acid Randall (0.7-2.0) mmol/L Calcium (8.4-10.2) mg/dL Total Bilirubin (0.2-1.3) mg/dL AST (14-36) U/L Troponin I (0.000-0.034) ng/mL Albumin (3.5-5.0) g/dL Crossmatch
--- NOTE | 2019-07-09 14:40 | P.DS ---
Providers Date of admission: 07/09/19 01:32 Expected date of discharge: 07/09/19 Attending physician: Flavio Nolan Consults: 07/09/19 01:29 Consult Physician Routine Consulting Provider: Devika Gardiner Consult Reason/Comments: Hematemesis. Do you want consulting provider notified?: Already Contacted 07/09/19 02:21 Consult Physician Stat Consulting Provider: Darling Sullivan Consult Reason/Comments: GI bleeding. Hypotension. Do you want consulting provider notified?: Already Contacted 07/09/19 03:54 Consult Physician Stat Consulting Provider: Pat Pedro Consult Reason/Comments: GI Bleeding Do you want consulting provider notified?: Already Contacted Primary care physician: Len Forrest [facility] Course: This patient was not seen by me. before I could see the patient. Patient Condition at Discharge: Undetermined Plan - Discharge Summary New Discharge Prescriptions: No Action SUMAtriptan SUCCINATE [Sumatriptan Succinate] 100 mg PO DAILY PRN PRN Reason: Migraine Headache Melatonin 5 mg PO HS PRN PRN Reason: Insomnia Discharge Medication List SUMAtriptan SUCCINATE [Sumatriptan Succinate] 100 mg PO DAILY PRN 02/18/19 [History] Melatonin 5 mg PO HS PRN 07/08/19 [History] Follow up Appointment(s)/Referral(s): Len Forrest DO [Primary Care Provider] - 1-2 days
--- NOTE | 2019-07-09 15:05 | P.GSCN ---
History of Present Illness Consult date: 07/09/19 History of present illness: Discussion with nurse that patient just . Past Medical History Past Medical History: Diabetes Mellitus, GERD/Reflux, GI Bleed, Hearing Disorder / Deafness, Seizure Disorder, Syncope Additional Past Medical History / Comment(s): hx. diverticulitis/diverticulosis, alcoholism,,hiatal hernia, legally deaf left ear and mild loss of hearing rt ear, poor vision left eye., past admission for GI bleeding, peptic ulcer, migraines, last seizure in her 20"s., Hx of Hepatitis C and possible Hepatitis A (no tx), chronic back pain, History of Any Multi-Drug Resistant Organisms: None Reported Past Surgical History: Appendectomy, Bowel Resection, Cholecystectomy, Orthopedic Surgery, Tonsillectomy Additional Past Surgical History / Comment(s): recent EGD, plate/screws in left elbow,egd/colonoscopy bowel polyps, hina cataracts with lens implants. lt eye sx for detatched retina Past Anesthesia/Blood Transfusion Reactions: No Reported Reaction Past Psychological History: Anxiety Smoking Status: Current every day smoker Past Alcohol Use History: Daily, Heavy Past Drug Use History: None Reported - Past Family History Mother Family Medical History: Cancer, Liver Disease Additional Family Medical History / Comment(s): cancer of uterus Father Family Medical History: CVA/TIA, Hypertension, Myocardial Infarction ([place]) Additional Family Medical History / Comment(s): father from stroke Sister(s) Family Medical History: Cancer Additional Family Medical History / Comment(s): Breast Cancer Medications and Allergies Home Medications Medication Instructions Recorded Confirmed Type SUMAtriptan SUCCINATE [Sumatriptan 100 mg PO DAILY PRN 02/18/19 07/08/19 History Succinate] Melatonin 5 mg PO HS PRN 07/08/19 07/08/19 History Allergies Allergy/AdvReac Type Severity Reaction Status Date / Time morphine AdvReac Nausea & Verified 07/08/19 22:57 Vomiting Surgical - Exam Vital Signs Temp Pulse Resp BP Pulse Ox 97.8 F 109 H 24 72/52 99 07/08/19 22:47 07/08/19 22:47 07/08/19 22:47 07/08/19 22:47 07/08/19 22:47 Results - Labs 07/09/19 11:52 07/09/19 05:25 Abnormal Lab Results - Last 24 Hours (Table) 07/08/19 07/08/19 07/08/19 Range/Units 23:01 23:01 23:01 WBC (3.8-10.6) k/uL RBC 3.75 L (3.80-5.40) m/uL Hgb (11.4-16.0) gm/dL Hct (34.0-46.0) % MCV (80.0-100.0) fL MCH (25.0-35.0) pg MCHC (31.0-37.0) g/dL RDW (11.5-15.5) % Plt Count 141 L (150-450) k/uL Neutrophils # (Manual) (1.3-7.7) k/uL Myelocytes # (Manual) (0) k/uL Nucleated RBCs (0-0) /100 WBC Macrocytosis PT 14.5 H (9.0-12.0) sec INR 1.4 H (<1.2) APTT 30.4 H (22.0-30.0) sec ABG pH (7.35-7.45) ABG pCO2 (35-45) mmHg ABG pO2 (83-108) mmHg ABG HCO3 (21-25) mmol/L ABG Total CO2 (19-24) mmol/L ABG O2 Saturation (94-97) % Sodium 136 L (137-145) mmol/L Potassium (3.5-5.1) mmol/L Chloride (98-107) mmol/L Carbon Dioxide 20 L (22-30) mmol/L Creatinine (0.52-1.04) mg/dL Glucose 143 H (74-99) mg/dL POC Glucose (mg/dL) (75-99) mg/dL Plasma Lactic Acid Randall (0.7-2.0) mmol/L Calcium (8.4-10.2) mg/dL Total Bilirubin 1.9 H (0.2-1.3) mg/dL AST 73 H (14-36) U/L Troponin I (0.000-0.034) ng/mL Albumin 3.0 L (3.5-5.0) g/dL Crossmatch 07/08/19 07/08/19 07/09/19 Range/Units 23:01 23:01 03:01 WBC (3.8-10.6) k/uL RBC 2.41 L (3.80-5.40) m/uL Hgb 8.7 L D (11.4-16.0) gm/dL Hct 24.8 L (34.0-46.0) % MCV 102.9 H (80.0-100.0) fL MCH 36.2 H (25.0-35.0) pg MCHC (31.0-37.0) g/dL RDW 15.7 H (11.5-15.5) % Plt Count (150-450) k/uL Neutrophils # (Manual) (1.3-7.7) k/uL Myelocytes # (Manual) (0) k/uL Nucleated RBCs (0-0) /100 WBC Macrocytosis PT (9.0-12.0) sec INR (<1.2) APTT (22.0-30.0) sec ABG pH (7.35-7.45) ABG pCO2 (35-45) mmHg ABG pO2 (83-108) mmHg ABG HCO3 (21-25) mmol/L ABG Total CO2 (19-24) mmol/L ABG O2 Saturation (94-97) % Sodium (137-145) mmol/L Potassium (3.5-5.1) mmol/L Chloride (98-107) mmol/L Carbon Dioxide (22-30) mmol/L Creatinine (0.52-1.04) mg/dL Glucose (74-99) mg/dL POC Glucose (mg/dL) (75-99) mg/dL Plasma Lactic Acid Randall 5.8 H* (0.7-2.0) mmol/L Calcium (8.4-10.2) mg/dL Total Bilirubin (0.2-1.3) mg/dL AST (14-36) U/L Troponin I (0.000-0.034) ng/mL Albumin (3.5-5.0) g/dL Crossmatch See Detail 07/09/19 07/09/19 07/09/19 Range/Units 03:01 04:23 05:25 WBC (3.8-10.6) k/uL RBC 2.26 L (3.80-5.40) m/uL Hgb 7.7 L (11.4-16.0) gm/dL Hct 26.4 L (34.0-46.0) % MCV 116.8 H D (80.0-100.0) fL MCH (25.0-35.0) pg MCHC 29.2 L (31.0-37.0) g/dL RDW 15.6 H (11.5-15.5) % Plt Count 125 L (150-450) k/uL Neutrophils # (Manual) (1.3-7.7) k/uL Myelocytes # (Manual) 0.08 H (0) k/uL Nucleated RBCs 1 H (0-0) /100 WBC Macrocytosis Marked A PT (9.0-12.0) sec INR (<1.2) APTT (22.0-30.0) sec ABG pH (7.35-7.45) ABG pCO2 (35-45) mmHg ABG pO2 (83-108) mmHg ABG HCO3 (21-25) mmol/L ABG Total CO2 (19-24) mmol/L ABG O2 Saturation (94-97) % Sodium (137-145) mmol/L Potassium (3.5-5.1) mmol/L Chloride (98-107) mmol/L Carbon Dioxide (22-30) mmol/L Creatinine (0.52-1.04) mg/dL Glucose (74-99) mg/dL POC Glucose (mg/dL) 271 H (75-99) mg/dL Plasma Lactic Acid Randall 7.9 H* (0.7-2.0) mmol/L Calcium (8.4-10.2) mg/dL Total Bilirubin (0.2-1.3) mg/dL AST (14-36) U/L Troponin I (0.000-0.034) ng/mL Albumin (3.5-5.0) g/dL Crossmatch 07/09/19 07/09/19 07/09/19 Range/Units 05:25 05:25 05:25 WBC (3.8-10.6) k/uL RBC (3.80-5.40) m/uL Hgb (11.4-16.0) gm/dL Hct (34.0-46.0) % MCV (80.0-100.0) fL MCH (25.0-35.0) pg MCHC (31.0-37.0) g/dL RDW (11.5-15.5) % Plt Count (150-450) k/uL Neutrophils # (Manual) (1.3-7.7) k/uL Myelocytes # (Manual) (0) k/uL Nucleated RBCs (0-0) /100 WBC Macrocytosis PT (9.0-12.0) sec INR (<1.2) APTT (22.0-30.0) sec ABG pH (7.35-7.45) ABG pCO2 (35-45) mmHg ABG pO2 (83-108) mmHg ABG HCO3 (21-25) mmol/L ABG Total CO2 (19-24) mmol/L ABG O2 Saturation (94-97) % Sodium (137-145) mmol/L Potassium 5.7 H (3.5-5.1) mmol/L Chloride 109 H (98-107) mmol/L Carbon Dioxide 8 L* (22-30) mmol/L Creatinine 1.46 H (0.52-1.04) mg/dL Glucose 258 H (74-99) mg/dL POC Glucose (mg/dL) (75-99) mg/dL Plasma Lactic Acid Randall >24.0 H* (0.7-2.0) mmol/L Calcium 7.6 L (8.4-10.2) mg/dL Total Bilirubin (0.2-1.3) mg/dL AST (14-36) U/L Troponin I 0.204 H* (0.000-0.034) ng/mL Albumin (3.5-5.0) g/dL Crossmatch 07/09/19 07/09/19 07/09/19 Range/Units 05:56 06:15 08:01 WBC 11.6 H (3.8-10.6) k/uL RBC 2.26 L (3.80-5.40) m/uL Hgb 7.8 L (11.4-16.0) gm/dL Hct 25.2 L (34.0-46.0) % MCV 111.5 H D (80.0-100.0) fL MCH (25.0-35.0) pg MCHC 30.9 L (31.0-37.0) g/dL RDW (11.5-15.5) % Plt Count 100 L (150-450) k/uL Neutrophils # (Manual) 8.70 H (1.3-7.7) k/uL Myelocytes # (Manual) 0.23 H (0) k/uL Nucleated RBCs (0-0) /100 WBC Macrocytosis Marked A PT (9.0-12.0) sec INR (<1.2) APTT (22.0-30.0) sec ABG pH <6.80 L* 6.86 L* (7.35-7.45) ABG pCO2 53 H (35-45) mmHg ABG pO2 118 H 25 L* (83-108) mmHg ABG HCO3 5 L* 10 L* (21-25) mmol/L ABG Total CO2 7 L 11 L (19-24) mmol/L ABG O2 Saturation 91.0 L 20.7 L (94-97) % Sodium (137-145) mmol/L Potassium (3.5-5.1) mmol/L Chloride (98-107) mmol/L Carbon Dioxide (22-30) mmol/L Creatinine (0.52-1.04) mg/dL Glucose (74-99) mg/dL POC Glucose (mg/dL) (75-99) mg/dL Plasma Lactic Acid Randall (0.7-2.0) mmol/L Calcium (8.4-10.2) mg/dL Total Bilirubin (0.2-1.3) mg/dL AST (14-36) U/L Troponin I (0.000-0.034) ng/mL Albumin (3.5-5.0) g/dL Crossmatch 07/09/19 07/09/19 07/09/19 Range/Units 09:34 10:15 11:02 WBC (3.8-10.6) k/uL RBC (3.80-5.40) m/uL Hgb (11.4-16.0) gm/dL Hct (34.0-46.0) % MCV (80.0-100.0) fL MCH (25.0-35.0) pg MCHC (31.0-37.0) g/dL RDW (11.5-15.5) % Plt Count (150-450) k/uL Neutrophils # (Manual) (1.3-7.7) k/uL Myelocytes # (Manual) (0) k/uL Nucleated RBCs (0-0) /100 WBC Macrocytosis PT (9.0-12.0) sec INR (<1.2) APTT (22.0-30.0) sec ABG pH (7.35-7.45) ABG pCO2 (35-45) mmHg ABG pO2 (83-108) mmHg ABG HCO3 (21-25) mmol/L ABG Total CO2 (19-24) mmol/L ABG O2 Saturation (94-97) % Sodium (137-145) mmol/L Potassium (3.5-5.1) mmol/L Chloride (98-107) mmol/L Carbon Dioxide (22-30) mmol/L Creatinine (0.52-1.04) mg/dL Glucose (74-99) mg/dL POC Glucose (mg/dL) 174 H 125 H (75-99) mg/dL Plasma Lactic Acid Randall 20.7 H* (0.7-2.0) mmol/L Calcium (8.4-10.2) mg/dL Total Bilirubin (0.2-1.3) mg/dL AST (14-36) U/L Troponin I (0.000-0.034) ng/mL Albumin (3.5-5.0) g/dL Crossmatch 07/09/19 Range/Units 11:52 WBC 20.4 H (3.8-10.6) k/uL RBC 3.06 L (3.80-5.40) m/uL Hgb 9.3 L D (11.4-16.0) gm/dL Hct 33.0 L (34.0-46.0) % MCV 107.9 H (80.0-100.0) fL MCH (25.0-35.0) pg MCHC 28.3 L (31.0-37.0) g/dL RDW 17.7 H (11.5-15.5) % Plt Count (150-450) k/uL Neutrophils # (Manual) (1.3-7.7) k/uL Myelocytes # (Manual) (0) k/uL Nucleated RBCs (0-0) /100 WBC Macrocytosis Marked A PT (9.0-12.0) sec INR (<1.2) APTT (22.0-30.0) sec ABG pH (7.35-7.45) ABG pCO2 (35-45) mmHg ABG pO2 (83-108) mmHg ABG HCO3 (21-25) mmol/L ABG Total CO2 (19-24) mmol/L ABG O2 Saturation (94-97) % Sodium (137-145) mmol/L Potassium (3.5-5.1) mmol/L Chloride (98-107) mmol/L Carbon Dioxide (22-30) mmol/L Creatinine (0.52-1.04) mg/dL Glucose (74-99) mg/dL POC Glucose (mg/dL) (75-99) mg/dL Plasma Lactic Acid Randall (0.7-2.0) mmol/L Calcium (8.4-10.2) mg/dL Total Bilirubin (0.2-1.3) mg/dL AST (14-36) U/L Troponin I (0.000-0.034) ng/mL Albumin (3.5-5.0) g/dL Crossmatch Diabetes panel 07/08/19 07/09/19 Range/Units 23:01 05:25 Sodium 136 L 142 (137-145) mmol/L Potassium 4.1 5.7 H (3.5-5.1) mmol/L Chloride 104 109 H (98-107) mmol/L Carbon Dioxide 20 L 8 L* (22-30) mmol/L BUN 13 14 (7-17) mg/dL Creatinine 0.96 1.46 H (0.52-1.04) mg/dL Glucose 143 H 258 H (74-99) mg/dL Calcium 8.4 7.6 L (8.4-10.2) mg/dL AST 73 H (14-36) U/L ALT 36 (9-52) U/L Alkaline Phosphatase 119 (38-126) U/L Total Protein 6.4 (6.3-8.2) g/dL Albumin 3.0 L (3.5-5.0) g/dL Calcium panel 07/08/19 07/09/19 Range/Units 23:01 05:25 Calcium 8.4 7.6 L (8.4-10.2) mg/dL Albumin 3.0 L (3.5-5.0) g/dL Pituitary panel 07/08/19 07/09/19 Range/Units 23:01 05:25 Sodium 136 L 142 (137-145) mmol/L Potassium 4.1 5.7 H (3.5-5.1) mmol/L Chloride 104 109 H (98-107) mmol/L Carbon Dioxide 20 L 8 L* (22-30) mmol/L BUN 13 14 (7-17) mg/dL Creatinine 0.96 1.46 H (0.52-1.04) mg/dL Glucose 143 H 258 H (74-99) mg/dL Calcium 8.4 7.6 L (8.4-10.2) mg/dL Adrenal panel 07/08/19 07/09/19 Range/Units 23:01 05:25 Sodium 136 L 142 (137-145) mmol/L Potassium 4.1 5.7 H (3.5-5.1) mmol/L Chloride 104 109 H (98-107) mmol/L Carbon Dioxide 20 L 8 L* (22-30) mmol/L BUN 13 14 (7-17) mg/dL Creatinine 0.96 1.46 H (0.52-1.04) mg/dL Glucose 143 H 258 H (74-99) mg/dL Calcium 8.4 7.6 L (8.4-10.2) mg/dL Total Bilirubin 1.9 H (0.2-1.3) mg/dL AST 73 H (14-36) U/L ALT 36 (9-52) U/L Alkaline Phosphatase 119 (38-126) U/L Total Protein 6.4 (6.3-8.2) g/dL Albumin 3.0 L (3.5-5.0) g/dL
[2019-07-09 15:08] LABS: Band Neutrophils % 14 %; Metamyelocytes % 4 %; Myelocytes % 4 %; Neutrophils % (M) 58 %; Nucleated Red Blood Cells 1 /100 WBC (0-0); Total Cells Counted 200
[2019-07-09 15:09] LABS: Lymphocytes # (M) 3.64 k/uL (1.0-4.8); Metamyelocytes # (M) 0.81 k/uL (0); Myelocytes # (M) 0.81 k/uL (0); WBC 20.2 k/uL (3.8-10.6)
[2019-07-09 15:16] LABS: Large Platelets Present
[2019-07-09 15:19] LABS: Toxic Granulation Present
[2019-07-09 15:21] LABS: Platelet Count 65 k/uL (150-450)
--- NOTE | 2019-07-09 16:01 | ECHOF ---
Referral Reason:shock MEASUREMENTS -------- HEIGHT: 170.2 cm WEIGHT: 104.3 kg BP: 111/13 IVSd: 1.8 cm (0.6 - 1.1) LVIDd: 3.6 cm (3.9 - 5.3) LVPWd: 1.9 cm (0.6 - 1.1) IVSs: 2.1 cm LVIDs: 2.1 cm LVPWs: 1.4 cm Ao Diam: 3.5 cm (2.0 - 3.7) LA Diam: 3.4 cm (2.7 - 3.8) FINDINGS -------- Undetermined rhythm. This was a techncally difficult study with suboptimal views, , Lumason utilized for enhancement of im ages. The left ventricular size is normal. There is severe concentric left ventricular hypertrophy. Ove rall left ventricular systolic function is normal with, an EF between 55 - 60 %. The right ventricle is normal in size. 5.0mg OF Lumason UTLIZED: 2 OR MORE WALL SEGMENTS NOT VISUALIZED. The aortic valve was not well visualized. The mitral valve was not well visualized. The pulmonic valve was not well visualized. Echo free space represents a pericardial fat pad. CONCLUSIONS -------- 1. Undetermined rhythm. 2. This was a techncally difficult study with suboptimal views, , Lumason utilized for enhancement of images. 3. The left ventricular size is normal. 4. There is severe concentric left ventricular hypertrophy. 5. Overall left ventricular systolic function is normal with, an EF between 55 - 60 %. 6. 5.0mg OF Lumason UTLIZED: 2 OR MORE WALL SEGMENTS NOT VISUALIZED. 7. The aortic valve was not well visualized. 8. The mitral valve was not well visualized. 9. The pulmonic valve was not well visualized. 10. Echo free space represents a pericardial fat pad. [employer] SUPERVISOR: Tasha Yap RDCS
[2019-07-09 16:21] VITALS: PULSE 81; RESP 16
[2019-07-11 11:40] LABS: ABG HCO3 5 mmol/L (21-25); ABG PH <6.80 (7.35-7.45)
--- NOTE | 2019-07-12 09:09 | CDI ---
Documentation Clarification Form Date: 07/12/2019 From: Eneida Wadsworth Phone: If questions call Meseret Leong @ [phone], Hours-8:30 am & 5 pm M- Kirsten Admit Date: 07/09/2019 1:32:00 AM Patient Name: Estephania Quintana Visit Number: [id number] Discharge Date: 07/09/2019 6:49:00 PM ATTENTION: The Clinical Documentation Specialists (CDI) and [facility] Coding Staff appreciate your assistance in clarifying documentation. Please respond to the clarification below the line at the bottom and electronically sign. The CDI & [facility] Coding staff will review the response and follow-up if needed. Please note: Queries are made part of the Legal Health Record. If you have any questions, please contact the author of this message via ITS. Dr. Darling Sullivan A diagnosis of blood loss anemia lacks specificity to accurately reflect your patients severity of condition and clarification is needed. History/Risk Factors: hematemesis, alcoholism, hx PUD Hemoglobin: 12.7, 8.7, 7.7, 7.8, 9.3 Hematocrit: 37.0, 34.8, 26.4, 25.2, 33.0 Treatment: 3 units of PRBCs, IV fluids, monitoring labs In order to capture the severity of condition, please clarify the type of anemia and etiology if known: Acute blood loss anemia Acute on chronic blood loss anemia Chronic blood loss anemia Unable to determine Other, please specify Acute blood loss anemia MTDD
--- NOTE | 2019-07-18 13:59 | CDI ---
Documentation Clarification Form Date: 07/18/2019 1:30:10 PM From: Suzanne Estrada Email: [email or web address] Admit Date: 07/09/2019 1:32:00 AM Patient Name: Estephania Quintana Visit Number: [id number] Discharge Date: 07/09/2019 6:49:00 PM ATTENTION: The Clinical Documentation Specialists (CDI) and [facility] Coding Staff appreciate your assistance in clarifying documentation. Please respond to the clarification below the line at the bottom and electronically sign. The CDI & [facility] Coding staff will review the response and follow-up if needed. Please note: Queries are made part of the Legal Health Record. If you have any questions, please contact the author of this message via ITS. Dr. Darling Sullivan The patient came in with hematemesis. Massive GI bleeding is documented in the progress note dated 07/09. Patient history/risk factors: alcoholic, drinks rum every day, CAT scan of the abdomen was done in the emergency department and showed low attenuating numerous foci throughout the liver suspicious for metastatic disease. 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 Clinical Indicators: hematemesis, maroon colored stool, tachycardic, lactic acidosis secondary to hypoperfusion, Platelet count: last platelet count from 07/09 was 65 Treatment: 3 units of PRBC's Other Treatment: several IV fluid bolus's of 0.9 NS In your professional opinion, is the above clinically significant for: Thrombocytopenia Other, please specify Unable to determine I don't understand the question, but if you are asking if the thrombocytopenia is related to the above morbidities, the answer is yes MTDD
--- NOTE | 2019-07-18 14:34 | CDI ---
Documentation Clarification Form Date: 07/18/2019 1:59:48 PM From: Suzanne Estrada RN, CCDS Email: [email or web address] Admit Date: 07/09/2019 1:32:00 AM Patient Name: Estephania Quintana Visit Number: [id number] Discharge Date: 07/09/2019 6:49:00 PM ATTENTION: The Clinical Documentation Specialists (CDI) and [facility] Coding Staff appreciate your assistance in clarifying documentation. Please respond to the clarification below the line at the bottom and electronically sign. The CDI & [facility] Coding staff will review the response and follow-up if needed. Please note: Queries are made part of the Legal Health Record. If you have any questions, please contact the author of this message via ITS. Dr. Darling Sullivan Documentation from the nursing note states: The Patient arrived on the unit and was slightly agitated but alert and oriented to self, time and place. Patient was becoming more agitated and more confused. Patient's pupils became fixed and dilated at this time. Patient then began agonal breathing and lost a pulse and went into PEA. A code blue was called at 0435 and CPR was started. Per ACLS protocol CPR was performed as well as 2 amps of Epinephrine were given along with 1 amp of Bicarb. 0443- Patient achieved ROSC and was then intubated at 0444. Arrived to ICU following code blue. Compressions taking place, patient being bagged by RT. Intubation was performed during pulse check. Blood pooled in oropharnyx requiring suction x 3. Tube placement was atraumatic, with placement confirmed immediately by RT via color change capnometry. History/Risk Factors: Alcoholism, GI bleeding, Cardiopulmonary arrest Clinical Indicators: agitated, agonal breathing, GI bleed, lactic and metabolic acidosis Vital signs: tachycardic, RR 16-36 Pulse oximetry: 73-97 Lung/Breathing assessment: diminished with inspiratory and expiratory wheeze ABG/CBG: pH 6.8 pO2 25 pCO2 53 Lactate >24 Treatment: Intubated on ventilator, CPR, bicarb, Intubated/Ventilated In your professional opinion, can you please clarify if these findings signify one of the following conditions? Acute Respiratory Failure (further specify (if known)): With hypercapnia? (pCO2 >50 and pH <7.35) With hypoxia? (pO2 <60 mm Hg or SpO2 <91% on room air) Other Diagnosis, please specify Unable to determine This is hypoxic and hyperpneic respiratory failure MTDD
--- NOTE | 2019-07-18 14:50 | CDI ---
Documentation Clarification Form Date: 07/18/2019 2:35:00 PM From: Perri Estrada RN, CCDS Email: [email or web address] Admit Date: 07/09/2019 1:32:00 AM Patient Name: Estephania Quintana Visit Number: [id number] Discharge Date: 07/09/2019 6:49:00 PM ATTENTION: The Clinical Documentation Specialists (CDI) and [facility] Coding Staff appreciate your assistance in clarifying documentation. Please respond to the clarification below the line at the bottom and electronically sign. The CDI & [facility] Coding staff will review the response and follow-up if needed. Please note: Queries are made part of the Legal Health Record. If you have any questions, please contact the author of this message via ITS. Dr. Darling Sullivan Severe hemodynamic instability causing cardiopulmonary arrest was documented in the 07/09 progress note. History/Risk Factors: massive GI bleed, cardiopulmonary arrest, alcoholism, possible cirrhosis Clinical Indicators: no urine output documented in 07/09 progress note, increased Cr, low GFR, lactic and metabolic acidosis BUN/Cr/GFR: 14/1.46/37 Treatment: several IVF bolus' of 0.9 NS, IV Epinephrine, IV Norepinephrine, IV Vasopressin In order to capture the severity of condition, please clarify if the condition signifies: Acute kidney injury Other, please specify Unable to determine yes, Acute kidney injury MTDD
== END 2019-07-09 18:49 | disposition expired | DRG 377 ==
LOC: EC 22:46 → UNDOADMOB 07-09 01:32 → 3SCARD 07-09 01:32 → 2SICU 07-09 01:32
PROVIDERS: ADMIT Hospitalist; ATTEND Hospitalist
PROC: 5A1935Z Respiratory Ventilation, Less than 24 Consecutive Hours (ICD-10-PCS; principal; 2019-07-09)
PROC: 0BH17EZ Insertion of Endotracheal Airway into Trachea, Via Natural or Artificial Opening (ICD-10-PCS; 2019-07-09)
PROC: 5A12012 Performance of Cardiac Output, Single, Manual (ICD-10-PCS; 2019-07-09)
PROC: 06HM33Z Insertion of Infusion Device into Right Femoral Vein, Percutaneous Approach (ICD-10-PCS; 2019-07-09)
PROC: 0D9670Z Drainage of Stomach with Drainage Device, Via Natural or Artificial Opening (ICD-10-PCS; 2019-07-09)
PROC: 30230N1 Transfusion of Nonautologous Red Blood Cells into Peripheral Vein, Open Approach (ICD-10-PCS; 2019-07-09)
DX: K92.0 Hematemesis (principal); J96.02 Acute respiratory failure with hypercapnia; J96.01 Acute respiratory failure with hypoxia; E87.2 Acidosis; N17.9 Acute kidney failure, unspecified; D62 Acute posthemorrhagic anemia; R57.1 Hypovolemic shock; I46.8 Cardiac arrest due to other underlying condition; D69.6 Thrombocytopenia, unspecified; Z66 Do not resuscitate; K70.30 Alcoholic cirrhosis of liver without ascites; F10.20 Alcohol dependence, uncomplicated; Y90.0 Blood alcohol level of less than 20 mg/100 ml; E11.9 Type 2 diabetes mellitus without complications; F41.9 Anxiety disorder, unspecified; I10 Essential (primary) hypertension; K21.9 Gastro-esophageal reflux disease without esophagitis; K29.60 Other gastritis without bleeding; K44.9 Diaphragmatic hernia without obstruction or gangrene; G43.909 Migraine, unspecified, not intractable, without status migrainosus; K57.90 Diverticulosis of intestine, part unspecified, without perforation or abscess without bleeding; G89.29 Other chronic pain; M54.9 Dorsalgia, unspecified; H54.7 Unspecified visual loss; H91.92 Unspecified hearing loss, left ear; F17.200 Nicotine dependence, unspecified, uncomplicated; Z87.11 Personal history of peptic ulcer disease; Z90.49 Acquired absence of other specified parts of digestive tract; Z86.69 Personal history of other diseases of the nervous system and sense organs; Z86.19 Personal history of other infectious and parasitic diseases; Z98.42 Cataract extraction status, left eye; Z98.41 Cataract extraction status, right eye; Z96.1 Presence of intraocular lens; Z88.5 Allergy status to narcotic agent; Z82.3 Family history of stroke; Z80.49 Family history of malignant neoplasm of other genital organs; Z82.49 Family history of ischemic heart disease and other diseases of the circulatory system; Z80.3 Family history of malignant neoplasm of breast; Z83.79 Family history of other diseases of the digestive system
CPT/HCPCS: 36415; 36556; 36600; 71045; 74177; 80048; 80053; 80320; 82805; 83605; 84484; 85025; 85027; 85610; 85730; 86850; 86900; 86901; 86920; 93005; 93306; 94002; 96365; 96366; 96374; 96375; 96376; 99285